=== PATIENT | female | born 1950 | race Caucasian/White ===

== ENCOUNTER → 2017-02-10 | Day surgery (SDC) | payer MEDICARE ==
[~2017-02-10] VITALS: Ht 160 cm; Wt 57.3 kg
[~2017-02-10] MED LIST: ACETAMINOPHEN 1000 MG/100 ML VIAL IV ONE; ALEN1TAB48 PO; ALPR.25 PO; AMPICILLIN-SULBACTAM INJ 3 GM VIAL ONE; AMPICILLIN/SULBAC 3 GM/NS 100 ML IV PRN; ASPI81TA5 PO; BACT800T5 PO; BENA25TA6 PO; CALC1TAB16 PO; CHLORHEXIDINE GLUCONATE 2 % 1 PACK (2 CLOTHS) TOPICAL PRN; CLOB0.0510 TOPICAL; ESTR42.5V VAGINAL; FAMOTIDINE 20 MG/2 ML VIAL ONE; GENT0.1O2 TOPICAL; GLUC500T4 PO; HYDROmorphone HCL PF 1 MG/ML VIAL ONE; INSULIN HUMAN REGULAR 1,000 UNITS/10 ML VIAL SQ PRN; KPHOS250 PO; LABETALOL HCL 100 MG/20 ML VIAL ONE; LACTATED RINGER'S 1000 ML INJ 1,000 ML IV ONE; LACTATED RINGER'S 1000 ML INJ 1,000 ML ONE; LACTATED RINGER'S 1000 ML IV PRN; LIDOCAINE 1%/EPINEPHrine 1:100,000 SOLN 30 ML VIAL ONE; METOPROLOL TARTRATE 25 MG TAB PO PRN; MORPHINE SULFATE 4 MG/ML INJ ONE; MYCO250C PO; NITR0.4S SL; OMEGCAP PO; OMEP20TA PO; ONDANSETRON HCL 4 MG/2 ML VIAL IV PUSH ONE; OXYMETAZOLINE HCL 0.05% 15 ML NASAL SPRAY ONE; PERC5TAB12 PO; POTA-243 PO; POVIDONE IODINE 5% (ANTISEPSIS KIT) 4 APPLICATIONS EACH NARE PRN; PRED5TAB PO; PROC10003 SQ; PROM25TA10 PO; PROM6.256 PO; PROMETHAZINE INJ 25 MG/ML VIAL ONE; PROPOFOL 200 MG/20 ML AMP IV ONE; RANI150T PO; SEVEL800 PO; SODIUM CHLORID 0.9% 500 ML IV PRN; SODIUM CHLORIDE 0.9% INJ 100 ML ONE; SOMA350T PO; TACR1 PO; ULOR40TA PO; VITA2000 PO; VITA400C70 PO; VITA500T83 PO; ZOFR4TAB3 SL; fentaNYL CITRATE 250 MCG/5 ML AMP ONE
[2017-02-10 08:47] VITALS: BP 127/78; PULSE 87; RESP 20; TEMP 97.7; O2SAT 96
[2017-02-10 11:02] VITALS: BP 149/68; PULSE 83; RESP 14; TEMP 98; O2SAT 99
--- NOTE | 2017-02-10 13:16 | MP ---
cc: ESTEBAN FOURNIER M.D. DATE OF SURGERY 02/10/[address] Esteban fournier PREOPERATIVE DIAGNOSIS 1. Nasal airway obstruction 2. Nasal septal deviation 3. Hypertrophy of inferior turbinates 4. Chronic pansinusitis POSTOPERATIVE DIAGNOSIS 1. Nasal airway obstruction 2. Nasal septal deviation 3. Hypertrophy of inferior turbinates 4. Chronic pansinusitis OPERATION PERFORMED 1. Open repair nasal septal fracture. 2. Bilateral submucosal resection of inferior turbinates 3. Bilateral endoscopic total ethmoidectomy. 4. Bilateral endoscopic maxillary antrostomy with removal of maxillary sinus tissue 5. Bilateral endoscopic exploration of frontal sinus duct with balloon sinus dilation. 6. Bilateral endoscopic sphenoidotomy with balloon sinus dilation. INDICATIONS Elisa Farley is a 66-year-old woman who has a history of renal transplant and is on chronic immune suppression. She has had difficulty with sinusitis for the last year which caused her to have a persistent cough due to posterior drainage. CT scan shows very marked bilateral deviation of the septum and involvement of all sinus cavities with obstruction and opacification. DESCRIPTION OF OPERATION The patient was taken to OR #2 and placed in the supine position. Following induction of general anesthesia and intubation, the nose was packed bilaterally with cotton pledgets saturated in 0.05% Oxymetazoline. The nasal septum and inferior turbinates were injected with a total of 8 mL of 1% Xylocaine with epinephrine 1:100,000. She was then prepped and draped for surgery. Packing was removed and a hemitransfixion incision was made in the left nasal vestibule and through this incision the septal mucosa was elevated bilaterally as far as the junction of the bony and cartilaginous septum. This exposed the quadrangular cartilage which was displaced from the midline all way to its anterior end into the left nasal vestibule. There was evidence of old cartilaginous trauma with numerous points and spurs in lines of angulation due to old fracture. A cumulative area of 2 x 2 cm was removed preserving 1.5 cm dorsal and caudal struts. The inferior most extent of the caudal strut was removed to allow it to return to the midline. The mucosa was then elevated from the bony septum and the maxillary crest and these were removed using Mamadou-Jimmy forceps and a 6-mm [place] chisel respectively. The incision was then closed with a running suture of 4-0 chromic and the mucosal layers of the septum were approximated to each other with a quilting stitch of 4-0 plain gut. The inferior turbinates were then fractured out medially and a stab incision was made along their inferior surfaces. Through these incisions, the submucosal soft tissue was reduced using a curette and preserving the conchal bone. The incision were then cauterized using suction Bovie at 45 andrea and the remnants of the inferior turbinates then we lateralized to the lateral nasal wall. The remainder the operation was completed using endoscopic visualization with a Storz 0 degrees fiberoptic scope. Additional injections of the lidocaine/epinephrine were made into the attachments of the middle turbinates as well as the uncinate processes and the ethmoid cells bilaterally. The left side was addressed first beginning with medialization of the middle turbinate and followed by sinusotomies punctured into the anterior and posterior ethmoid cells using a #10 suction and Blakesley forceps. The right side was then operated in the same fashion with medialization of the turbinate and sinusotomies created in the anterior and posterior ethmoid cells. The balloon dilation was attempted next starting at the left side. The guidewire was advanced up into the frontal sinus and the balloon advanced over the wire was inflated to a pressure of 12 atmospheres at the superior midpoint and inferior level of the junction with the anterior ethmoids. The duct was examined using a 70 degrees scope and found to be patent all the way into the frontal sinus. Fragments of bone and soft tissue were removed from the duct using upbiting Blakesley forceps. The same procedure was then completed on the right side with verification that the duct was patent all the way into the frontal sinus. Next, the maxillary ostium was opened on the left side using the balloon sinus technique. The cavity was irrigated of mucus and purulent material with 200 mL of saline. The ostium was then enlarged with Stammberger forceps and through cutting Blakesley forceps. The right maxillary was operated in the same fashion. This was also filled with mucopurulent material which was irrigated clear from the maxillary sinus. Lastly on each side, the sphenoid ostium was dilated using the balloon technique to a pressure of 12 atmospheres and verified patent with a 0 degrees scope. There was no sign of infection within the sphenoid sinus. All sinuses were then irrigated and suctioned. The nose was then packed with 5.5 cm rapid rhino packs inflated with 5 mL of air and the procedure was terminated. The patient was reversed from anesthesia and taken to recovery in good condition. No complications. Blood loss was 200 mL. MD ERNIE Toscano/JAVON /12:09 PM /1:09 PM
--- NOTE | 2017-02-10 18:05 | EKG ---
Date Performed: 02/10/2017 Time Performed: 08:44:54 PTAGE: 66 years EKG: Sinus rhythm LOW QRS VOLTAGE IN PRECORDIAL LEADS BORDERLINE ECG PREVIOUS TRACING : 12/15/2012 21.12 Compared to prior tracing no significant change DOCTOR: Connor Wisdom Interpretating Date/Time 02/10/2017 18:03:31
== END | disposition home or self-care (01) ==
LOC: PHSDC 06:29
PROVIDERS: ATTEND Otolaryngology
DX: J34.3 Hypertrophy of nasal turbinates (principal); J34.2 Deviated nasal septum; J32.4 Chronic pansinusitis; J34.89 Other specified disorders of nose and nasal sinuses; Z94.0 Kidney transplant status; Z01.810 Encounter for preprocedural cardiovascular examination
CPT/HCPCS: 00160; 21325; 30140; 31255; 31267; 31276; 31287; 93005; J0131; J0295; J1170; J2270; J2405; J2550; J3010; J7120

== ENCOUNTER 2018-08-01 12:46 | Inpatient (IN) ==
[2018-08-01] MEDS ORDERED: Acetaminophen 325 MG Tablet PO ONE (13:18)
[2018-08-01] MEDS ORDERED: Sod Chloride 0.9% Inj 1,000 ML IV.SIG SCH (13:30)
[2018-08-01] MEDS ORDERED: Sod Chloride 0.9% Inj 800 ML IV.SIG SCH (13:30)
--- NOTE | 2018-08-01 13:34 | ED ---
HPI General Chief Complaint: Fever Stated Complaint: Fever Complaint Time Seen by Provider: 08/01/18 13:16 Source: patient and family Limitations: no limitations History of Present Illness HPI Narrative: Patient is a 68-year-old female, past medical history significant for renal transplant 2 years ago, on immunosuppressive's, who presents with complaint of urinary urgency and frequency for the last 1-2 days with nausea, vomiting that began today with fevers. She did not take anything to help the fever other than a Soma. She has had a cough but does not believe it has been productive. She denies flank pain or pain over the transplant site. She does not know why she went into renal failure other than she had problems with proteinuria. Her transplant was done by the [facility]. He is followed by Dr. Mary, gas fitter apprentice with [facility], despite the fact that he is retired for her renal care. MD complaint: Reports fever and weakness Onset (ago): day(s) Temperature Source: oral Associated symptoms: Reports chills, cough, nausea and vomiting Relieving factors: nothing Exacerbating factors: nothing Treatments prior to arrival fever: Reports none Related Data Allergies Allergy/AdvReac Type Severity Reaction Status Date / Time allopurinol Allergy Severe RASH Unverified 03/10/17 15:52 lactose Allergy Severe COUGH, Unverified 03/10/17 15:52 CONGESTION, GAS Sulfa (Sulfonamide Allergy Intermediate Rash Unverified 03/10/17 15:52 Antibiotics) Review of Systems ROS: all other systems reviewed are negative [facility] Medical History Medical History Heart attack (Acute) Surgical History Surgical History H/O heart artery stent (Acute) Hx of cholecystectomy (Acute) Kidney transplant recipient (Chronic) Social History Social History Smoking Status: Never smoker How Often Do You Have a Drink Containing Alcohol: Monthly or less Recent Travel in [facility] within the Last 8 Weeks: No Exam Narrative Exam Narrative: GENERAL: Ill-appearing female, vomiting SKIN: Focused skin assessment warm/dry. No rashes. HEAD: Atraumatic. Normocephalic. EYES: Pupils equal and round. No scleral icterus. No injection or drainage. ENT: No nasal bleeding or discharge. Mucous membranes pink and dry. NECK: Trachea midline. No JVD. CARDIOVASCULAR: Regular rate and rhythm. No murmur appreciated. Intact and equal peripheral pulses. RESPIRATORY: No accessory muscle use. Clear to auscultation. Breath sounds equal bilaterally. GASTROINTESTINAL: Abdomen soft, non-tender, nondistended. Hepatic and splenic margins not palpable. No tenderness on palpation of the transplanted kidney MUSCULOSKELETAL: No obvious deformities. No clubbing. No cyanosis. No edema. NEUROLOGICAL: Awake and alert. No obvious cranial nerve deficits. Motor grossly within normal limits. Normal speech. PSYCHIATRIC: Appropriate mood and affect; insight and judgment normal. Course Initial Documented Vital Signs Temperature 100.4 F H 08/01/18 12:56 Pulse Rate 107 H 08/01/18 12:56 Respiratory Rate 20 08/01/18 12:56 Blood Pressure 130/71 08/01/18 12:56 Pulse Oximetry 96 08/01/18 12:56 Last Documented Vital Signs Temperature 100.4 F H 08/01/18 12:56 Pulse Rate 107 H 08/01/18 12:56 Respiratory Rate 20 08/01/18 12:56 Blood Pressure 130/71 08/01/18 12:56 Pulse Oximetry 96 08/01/18 12:56 Medical Decision Making MDM Narrative Medical decision making narrative: Patient is a 68-year-old female, past medical history significant for renal transplant approximately 2 years ago, who presents with complaint of urinary urgency and frequency with fever, nausea, vomiting. She is tachycardic and febrile, ill-appearing on arrival but has been hemodynamically stable. Sepsis protocol was initiated. She was given fluid boluses with cefepime. UA is consistent with infection. Blood work reveals a leukocytosis but a normal creatinine. She remains hemodynamically stable and thus has been admitted to the family medicine service under Dr. Crespo. Medical Screen Exam Complete: Yes Emergency Medical Condition: Yes Differential Diagnosis Differential Diagnosis: Differential diagnosis includes but is not limited to influenza, bacteremia, sepsis, pyelonephritis. Medical Records Medical records reviewed: Yes I reviewed the patient's medical records. Lab Data Lab results reviewed: Yes I reviewed the patient's lab results. Result diagrams: 08/01/18 13:15 08/01/18 13:15 Lab Results 08/01/18 08/01/18 08/01/18 Range/Units 13:10 13:15 13:15 WBC 14.0 H (4.0-11.0) th/mm3 RBC 4.57 (4.00-5.30) mil/mm3 Hgb 13.1 (11.6-15.3) gm/dL Hct 39.9 (35.0-46.0) % MCV 87.3 (80.0-100.0) fL MCH 28.7 (27.0-34.0) pg MCHC 32.9 (32.0-36.0) % RDW 14.1 (11.6-17.2) % Plt Count 171 (150-450) th/mm3 MPV 10.0 (7.0-11.0) fL Neut % (Auto) 82.7 H (16.0-70.0) % Lymph % (Auto) 11.6 (9.0-44.0) % Collin % (Auto) 5.1 (0.0-8.0) % Eos % (Auto) 0.0 (0.0-4.0) % Baso % (Auto) 0.6 (0.0-2.0) % Neut # (Auto) 11.5 H (1.8-7.7) th/mm3 Lymph # (Auto) 1.6 (1.0-4.8) th/mm3 Collin # (Auto) 0.7 (0.0-0.9) th/mm3 Eos # (Auto) 0.0 (0.0-0.4) th/mm3 Baso # (Auto) 0.1 (0.0-0.2) th/mm3 WBC Differential . Differential Comment Auto diff final Sodium 134 L (136-145) meq/L Potassium 4.2 (3.5-5.1) meq/L Chloride 101 (98-107) meq/L Carbon Dioxide 25.3 (21.0-32.0) meq/L Anion Gap 8 (5-15) meq/L BUN 15 (7-18) mg/dL Creatinine 1.03 H (0.50-1.00) mg/dL Estimated GFR 53 L (>89) mL/min Random Glucose 212 H (74-106) mg/dL Lactic Acid 1.5 (0.4-2.0) mmol/L Calcium 8.8 (8.5-10.1) mg/dL Total Bilirubin 1.6 H (0.2-1.0) mg/dL AST 36 (15-37) U/L ALT 25 (10-53) U/L Alkaline Phosphatase 73 (45-117) U/L Total Protein 7.1 (6.4-8.2) g/dL Albumin 3.6 (3.4-5.0) g/dL Urine Color (Yellw/Straw) Urine Clarity (Clear) Urine pH (5.0-8.5) Ur Specific Glen (1.002-1.035) Urine Protein (Neg-Trace) mg/dL Urine Glucose (UA) (Negative) mg/dL Urine Ketones (Negative) mg/dL Urine Occult Blood (Negative) Urine Nitrate (Negative) Urine Bilirubin (Negative) Urine Urobilinogen (Less than 2) mg/dL Ur Leukocyte Esterase (Negative) Urine RBC (0-3) /hpf Urine WBC (0-5) /hpf Urine WBC Clumps (None) Ur Squamous Epith Cells (0-5) /hpf Urine Bacteria (None) /hpf Micro UA Comment Ur Microscopic Review Urine Culture Comments 08/01/18 Range/Units 13:50 WBC (4.0-11.0) th/mm3 RBC (4.00-5.30) mil/mm3 Hgb (11.6-15.3) gm/dL Hct (35.0-46.0) % MCV (80.0-100.0) fL MCH (27.0-34.0) pg MCHC (32.0-36.0) % RDW (11.6-17.2) % Plt Count (150-450) th/mm3 MPV (7.0-11.0) fL Neut % (Auto) (16.0-70.0) % Lymph % (Auto) (9.0-44.0) % Collin % (Auto) (0.0-8.0) % Eos % (Auto) (0.0-4.0) % Baso % (Auto) (0.0-2.0) % Neut # (Auto) (1.8-7.7) th/mm3 Lymph # (Auto) (1.0-4.8) th/mm3 Collin # (Auto) (0.0-0.9) th/mm3 Eos # (Auto) (0.0-0.4) th/mm3 Baso # (Auto) (0.0-0.2) th/mm3 WBC Differential Differential Comment Sodium (136-145) meq/L Potassium (3.5-5.1) meq/L Chloride (98-107) meq/L Carbon Dioxide (21.0-32.0) meq/L Anion Gap (5-15) meq/L BUN (7-18) mg/dL Creatinine (0.50-1.00) mg/dL Estimated GFR (>89) mL/min Random Glucose (74-106) mg/dL Lactic Acid (0.4-2.0) mmol/L Calcium (8.5-10.1) mg/dL Total Bilirubin (0.2-1.0) mg/dL AST (15-37) U/L ALT (10-53) U/L Alkaline Phosphatase (45-117) U/L Total Protein (6.4-8.2) g/dL Albumin (3.4-5.0) g/dL Urine Color Yellow (Yellw/Straw) Urine Clarity Hazy H (Clear) Urine pH 6.0 (5.0-8.5) Ur Specific Glen 1.010 (1.002-1.035) Urine Protein 30 H (Neg-Trace) mg/dL Urine Glucose (UA) 50 (Negative) mg/dL Urine Ketones Negative (Negative) mg/dL Urine Occult Blood Small H (Negative) Urine Nitrate Positive H (Negative) Urine Bilirubin Negative (Negative) Urine Urobilinogen Less than 2 (Less than 2) mg/dL Ur Leukocyte Esterase Large H (Negative) Urine RBC 3 (0-3) /hpf Urine WBC (0-5) /hpf Urine WBC Clumps Many H (None) Ur Squamous Epith Cells <1 (0-5) /hpf Urine Bacteria Moderate H (None) /hpf Micro UA Comment Culture indicated Ur Microscopic Review Not Reportable Urine Culture Comments Culture indicated Imaging Data Radiologist's impression: Chest X-Ray 08/01/18 13:19 CONCLUSION: No acute cardiopulmonary disease. ECG Data EKG Prior to Arrival: No Attestation: I personally reviewed and interpreted this ECG as follows: (Sinus rhythm at a rate of [address] or T wave changes.) Discharge Plan Discharge Disposition Patient Disposition: ED Admit(ED Internal Use Only) Discharge Condition Condition: Stable Discharge Order Discharge Orders: ED Use Only Admit Order (Routine); Ordered 01/06/19 Ordered By: Yahaira Whittaker Discharge Details Diagnosis: Sepsis, Acute pyelonephritis, Renal transplant recipient Physicians Team ED Provider: Yahaira Whittaker Primary Care Provider: Oscar Luis ED Status: Pending Admission
[2018-08-01 13:40] LABS: Baso # (Auto) 0.1 th/mm3 (0.0-0.2); Baso % (Auto) 0.6 % (0.0-2.0); Hematocrit 39.9 % (35.0-46.0); Hemoglobin 13.1 gm/dL (11.6-15.3); Lymph # (Auto) 1.6 th/mm3 (1.0-4.8); Lymph % (Auto) 11.6 % (9.0-44.0); Mean Corpuscular HGB Conc 32.9 % (32.0-36.0); Mean Corpuscular Hemoglobin 28.7 pg (27.0-34.0); Mean Corpuscular Volume 87.3 fL (80.0-100.0); Mono # (Auto) 0.7 th/mm3 (0.0-0.9); Mono % (Auto) 5.1 % (0.0-8.0); Neut # (Auto) 11.5 th/mm3 (1.8-7.7); Neut % (Auto) 82.7 % (16.0-70.0); Platelet Count 171 th/mm3 (150-450); Red Blood Count 4.57 mil/mm3 (4.00-5.30); Red Cell Distribution Width 14.1 % (11.6-17.2)
--- NOTE | 2018-08-01 13:42 | XR ---
EXAM DATE: 08/01/2018 1:32 PM EST AGE/SEX: 68 years / Female INDICATIONS: Fever. CLINICAL DATA: This is the patient's initial encounter. Patient reports that signs and symptoms have been present for 2 days and indicates a pain score of 0/10. MEDICAL/SURGICAL HISTORY: None. Cholecystectomy. COMPARISON: [facility], XR CHEST PA AND LAT, 11/25/2016. . FINDINGS: The lungs are clear without infiltrate, nodule, or mass. There is no appreciable pleural effusion for technique. Heart and mediastinum are unremarkable. CONCLUSION: No acute cardiopulmonary disease. Electronically signed by: Angela Acosta MD Board Certified Radiologist 08/01/2018 1:40 PM EST
[2018-08-01 13:54] LABS: Alanine Aminotransferase 25 U/L (10-53); Albumin 3.6 g/dL (3.4-5.0); Anion Gap 8 meq/L (5-15); Aspartate Aminotransferase 36 U/L (15-37); Blood Urea Nitrogen 15 mg/dL (7-18); Calcium 8.8 mg/dL (8.5-10.1); Carbon Dioxide 25.3 meq/L (21.0-32.0); Chloride 101 meq/L (98-107); Glomerular Filtration Rate 53 mL/min (>89); Glucose,Random 212 mg/dL (74-106); Potassium 4.2 meq/L (3.5-5.1); Sodium 134 meq/L (136-145)
[2018-08-01 13:55] LABS: Alkaline Phosphatase 73 U/L (45-117); Total Protein 7.1 g/dL (6.4-8.2)
[2018-08-01 14:14] LABS: Bacteria,Urine Moderate /hpf; Bilirubin,Urine Negative (Negative); Color,Urine Yellow (Yellw/Straw); Glucose,Urine (UA) 50 mg/dL (Negative); Leukocyte Esterase,Urine Large (Negative); Nitrite,Urine Positive (Negative); Squamous Epithelial Cell,Urine <1 /hpf (0-5)
[2018-08-01 14:17] LABS: Clarity,Urine Hazy (Clear)
--- NOTE | 2018-08-01 15:29 | P.HPFP ---
History of Present Illness Primary Care Physician: Oscar Luis MD <Polo Crespo 08/01/18 19:55> Oscar Luis MD <Rey AlbertoMiracle E 08/01/18 15:28> History of Present Illness: Ms Aleksander Reeves is a 68yof presenting with urinary frequency and incontinence, starting yesterday. Denies any hematuria, dysuria. 102 fever this morning. No history of any urinary tract infections. Nausea and vomiting today. Lightheadedness this morning. Cough but believes that this was more like gagging with her vomiting. Denies any flank pain. patient was on amoxicillin 2 months ago for a dental treatment. PMH: S/p renal transplant, followed by Dr. Mary nephrology Meds: Prednisone Tacrolimus Procrit Tradgenta Ranitidine Fosomax Aspirin 81mg Vitamin D Clobetasol Carisprodol Promethazine Xanax 0.25mg Sx: renal transplant [address] [facility] Cardiac stent 2001 Cholecystectomy R ovary removed Hand sx Social EtOH- socially Tobacco- never smoker Recreational Drugs- none <Reytan DominguezMiracle E 08/01/18 17:56> - Diagnosis (1) Sepsis (2) Acute pyelonephritis (3) Renal transplant recipient <Polo Crespo 08/01/18 19:55> (1) Sepsis (2) Acute pyelonephritis (3) Renal transplant recipient <Reytan DominguezMiracle E 08/01/18 17:45> Inpatient Certification: I certify that the inpatient services were ordered in accordance with Medicare regulations governing the order. This includes certification that hospital inpatient services are reasonable and necessary and in the case of services not specified as inpatient-only under 42 CFR 419.22(n), that they are appropriately provided as inpatient services in accordance to with the 2-midnight benchmark under 43 CFR 412.3(e) <Polo Crespo 08/01/18 19:55> I certify that the inpatient services were ordered in accordance with Medicare regulations governing the order. This includes certification that hospital inpatient services are reasonable and necessary and in the case of services not specified as inpatient-only under 42 CFR 419.22(n), that they are appropriately provided as inpatient services in accordance to with the 2-midnight benchmark under 43 CFR 412.3(e) <Miracle Holt 08/01/18 15:28> Review of Systems Constitutional: Reports fever(s), Denies lack of energy, Denies weakness < Miracle Holt 08/01/18 17:56> Eyes: Denies blurry vision <Miracle Holt 08/01/18 17:56> Cardiovascular: Denies chest pain, Denies fainting, Denies leg swelling, Denies lightheadedness <Miracle Holt 08/01/18 17:56> Respiratory: Denies cough, Denies shortness of breath <Miracle Holt 01/12 17:56> Gastrointestinal: Denies abdominal pain, Denies change in bowel habits, Denies constipation <Miracle Holt 08/01/18 17:56> Genitourinary: Reports urinary incontinence, Reports urinary urgency, Denies blood in urine, Denies painful urination <Miracle Holt 08/01/18 17:56> [facility] - History History Provided By: Patient <Miracle Holt 08/01/18 15:28> - Medical History Medical History: Medical History (Last Updated 08/01/18 @ 13:59 by Brian Florence, RN) Heart attack <KalenPolo ann Angela Piña 08/01/18 19:45> Medical History (Last Updated 08/01/18 @ 13:59 by Brian Florence RN) Heart attack <Miracle Holt 08/01/18 15:28> - Surgical History Surgical History: Surgical History (Last Updated 08/01/18 @ 14:00 by Brian Florence, RN) H/O heart artery stent Hx of cholecystectomy Kidney transplant recipient <KalenPolo ann Angela Piña 08/01/18 19:45> Surgical History (Last Updated 08/01/18 @ 14:00 by Brian Florence, RN) H/O heart artery stent Hx of cholecystectomy Kidney transplant recipient <Miracle Holt 08/01/18 15:28> - Tobacco History Smoking Status: Never smoker <Miracle Holt 08/01/18 15:28> - Alcohol History How Often Do You Have a Drink Containing Alcohol: Monthly or less <Miracle Holt 08/01/18 15:28> - Travel History Recent Travel in the [place] Within the Last 8 Weeks: No <Miracle Holt - 08/01 15:28> - Immunization History Tetanus Immunization: Unsure <Miracle Holt - 08/01/18 15:28> Medications and Allergies Allergies Allergy/AdvReac Type Severity Reaction Status Date / Time allopurinol Allergy Severe RASH Unverified 03/10/17 15:52 lactose Allergy Severe COUGH, Unverified 03/10/17 15:52 CONGESTION, GAS Sulfa (Sulfonamide Allergy Intermediate Rash Unverified 03/10/17 15:52 Antibiotics) <Polo Crespo - 08/01/18 19:55> Home Medications Medication Instructions Recorded Confirmed Type alendronate [Fosamax] 70 mg PO QWEEK 08/01/18 08/01/18 History alprazolam [Xanax] 0.25 mg PO TID PRN 08/01/18 08/01/18 History aspirin 81 mg PO DAILY 08/01/18 08/01/18 History carisoprodol [Soma] 350 mg PO TID PRN 08/01/18 08/01/18 History cholecalciferol (vitamin D3) 2,000 unit PO EVERY OTHER DAY 08/01/18 08/01/18 History [Vitamin D3] cinnamon bark [Cinnamon] 500 mg PO DAILY 08/01/18 08/01/18 History clobetasol 1 applic TOPICAL DAILY PRN 08/01/18 08/01/18 History linagliptin [Tradjenta] 5 mg PO QAM 08/01/18 08/01/18 History mycophenolate mofetil 500 mg PO BID 08/01/18 08/01/18 History prednisone 5 mg PO DAILY 08/01/18 08/01/18 History promethazine 12.5 mg PO Q6H PRN 08/01/18 08/01/18 History ranitidine HCl [Zantac] 150 mg PO DAILY 08/01/18 08/01/18 History tacrolimus 1 mg PO QAM 08/01/18 08/01/18 History tacrolimus 2.5 mg PO QPM 08/01/18 08/01/18 History tacrolimus 2.5 mg PO QPM 08/01/18 08/01/18 History turmeric root extract 500 mg PO DAILY 08/01/18 08/01/18 History <Polo Crespo K - 08/01/18 19:55> Active Medications: Active Medications Acetaminophen (Tylenol) 650 mg PO Q4H PRN PRN Reason: FEVER > 100.4 F Alprazolam (Xanax) 0.25 mg PO TID PRN PRN Reason: Anxiety Aspirin (Ecotrin) 81 mg PO DAILY [facility] Carisoprodol (Soma) 350 mg PO TID PRN PRN Reason: MUSCLE SPASMS Enoxaparin Sodium (Lovenox Inj) 40 mg SQ DAILY [facility] Last Admin: 08/01/18 16:43 Dose: 40 mg Sodium Chloride (Ns Inj) 800 mls @ 0 mls/hr IV.SIG .Q0M [facility] Last Infusion: 08/01/18 15:56 Dose: Infused Sodium Chloride (Ns Inj) 1,000 mls @ 95 mls/hr IV.CONT .[id number] [facility] Last Admin: 08/01/18 16:43 Dose: 95 mls/hr Cefepime HCl 2,000 mg/ Sodium (Chloride) 100 mls @ 200 mls/hr IV.SIG Q12H [facility] Mycophenolate Mofetil (Cellcept) 500 mg PO BID [facility] Pt Own Med: (Linagliptin 5mg) 0 each PO DAILY [facility] Prednisone (Deltasone) 5 mg PO DAILY [facility] Ranitidine HCl (Zantac) 150 mg PO DAILY [facility] Sodium Chloride (Ns Flush) 2 ml IV.FLUSH BID [facility] Sodium Chloride (Ns Flush) 2 ml IV.FLUSH PRN PRN PRN Reason: FLUSH AFTER USING IV ACCESS Tacrolimus (Prograf) 2 mg PO DAILY@1900 [facility] Tacrolimus (Prograf) 0.5 mg PO DAILY@1900 [facility] <Polo Crespo K - 08/01/18 19:55> Active Medications Sodium Chloride (Ns Inj) 800 mls @ 0 mls/hr IV.SIG .Q0M [facility] Sodium Chloride (Ns Inj) 1,000 mls @ 95 mls/hr IV.CONT .[id number] [facility] Sodium Chloride (Ns Flush) 2 ml IV.FLUSH BID [facility] Sodium Chloride (Ns Flush) 2 ml IV.FLUSH PRN PRN PRN Reason: FLUSH AFTER USING IV ACCESS <Miracle Holt E - 08/01/18 15:28> Exam Vital signs: Vital Signs 08/01/18 12:56 08/01/18 13:19 08/01/18 14:31 Temperature 100.4 F H Pulse Rate 107 H 90 90 Respiratory Rate 20 17 16 Blood Pressure 130/71 155/72 H 128/57 L Pulse Oximetry 96 100 93 L 08/01/18 15:55 08/01/18 18:00 Temperature 100.5 F H 98.2 F Pulse Rate 88 89 Respiratory Rate 18 Blood Pressure 121/57 L 117/51 L Pulse Oximetry 95 97 Intake & Output 08/01/18 08/01/18 08/02/18 06:59 18:59 06:59 Intake Total 1900 / 1900 Balance 1900 / 1900 Weight 58.9 kg Intake: IV 1900 / 1900 Maxipime Inj 2,000 MG In NS Inj 100 / 100 100 ML @ 200 mls/hr IV.SIG STAT STA Rx#:[id number] NS Inj 800 ML @ Wide Open IV. 1800 / 1800 SIG .Q0M [facility] Rx#:[id number] Other: Weight On Admission 58.9 kg <Polo Crespo K - 08/01/18 19:55> Vital Signs 08/01/18 12:56 08/01/18 13:19 08/01/18 14:31 Temperature 100.4 F H Pulse Rate 107 H 90 90 Respiratory Rate 20 17 16 Blood Pressure 130/71 155/72 H 128/57 L Pulse Oximetry 96 100 93 L Intake & Output 07/31/18 08/01/18 08/01/18 18:59 06:59 18:59 Intake Total 1100 / 1100 Balance 1100 / 1100 Weight 55.338 kg Intake: IV 1100 / 1100 Maxipime Inj 2,000 MG In NS Inj 100 / 100 100 ML @ 200 mls/hr IV.SIG STAT STA Rx#:[id number] NS Inj 1,000 ML @ Wide Open IV. 1000 / 1000 SIG .Q0M FANNY Rx#:[id number] <Miracle Holt E - 08/01/18 15:28> Narrative: GENERAL: Well-appearing female, no acute distress resting in bed SKIN: Warm and dry. HEAD: Normocephalic. EYES: No scleral icterus. No injection or drainage. CARDIOVASCULAR: Regular rate and rhythm without murmurs, gallops, or rubs. RESPIRATORY: Breath sounds equal bilaterally. No accessory muscle use. GASTROINTESTINAL: Abdomen soft, non-tender, nondistended. Scars noted from previous surgeries MUSCULOSKELETAL: No cyanosis, or edema. BACK: Nontender without obvious deformity. No CVA tenderness. <Rey Miracle Dominguez E - 08/01/18 17:56> Results - Labs Result diagrams: 08/01/18 13:15 08/01/18 13:15 <Polo Crespo - 08/01/18 19:55> Abnormal lab results 08/01/18 08/01/18 08/01/18 Range/Units 13:15 13:15 13:50 WBC 14.0 H (4.0-11.0) th/mm3 Neut % (Auto) 82.7 H (16.0-70.0) % Neut # (Auto) 11.5 H (1.8-7.7) th/mm3 Sodium 134 L (136-145) meq/L Creatinine 1.03 H (0.50-1.00) mg/dL Estimated GFR 53 L (>89) mL/min Random Glucose 212 H (74-106) mg/dL Total Bilirubin 1.6 H (0.2-1.0) mg/dL Urine Clarity Hazy H (Clear) Urine Protein 30 H (Neg-Trace) mg/dL Urine Occult Blood Small H (Negative) Urine Nitrate Positive H (Negative) Ur Leukocyte Esterase Large H (Negative) Urine WBC Clumps Many H (None) Urine Bacteria Moderate H (None) /hpf Short CBC 08/01/18 Range/Units 13:15 WBC 14.0 H (4.0-11.0) th/mm3 Hgb 13.1 (11.6-15.3) gm/dL Hct 39.9 (35.0-46.0) % Plt Count 171 (150-450) th/mm3 BMP 08/01/18 13:15 Sodium 134 L Potassium 4.2 Chloride 101 Carbon Dioxide 25.3 BUN 15 Creatinine 1.03 H Calcium 8.8 Liver Function 08/01/18 Range/Units 13:15 Total Bilirubin 1.6 H (0.2-1.0) mg/dL AST 36 (15-37) U/L ALT 25 (10-53) U/L Alkaline Phosphatase 73 (45-117) U/L Albumin 3.6 (3.4-5.0) g/dL Urine 08/01/18 Range/Units 13:50 Urine Color Yellow (Yellw/Straw) Urine Clarity Hazy H (Clear) Urine pH 6.0 (5.0-8.5) Ur Specific [place] 1.010 (1.002-1.035) Urine Protein 30 H (Neg-Trace) mg/dL Urine Glucose (UA) 50 (Negative) mg/dL <Polo Crespo - 08/01/18 19:55> Abnormal lab results 08/01/18 08/01/18 08/01/18 Range/Units 13:15 13:15 13:50 WBC 14.0 H (4.0-11.0) th/mm3 Neut % (Auto) 82.7 H (16.0-70.0) % Neut # (Auto) 11.5 H (1.8-7.7) th/mm3 Sodium 134 L (136-145) meq/L Creatinine 1.03 H (0.50-1.00) mg/dL Estimated GFR 53 L (>89) mL/min Random Glucose 212 H (74-106) mg/dL Total Bilirubin 1.6 H (0.2-1.0) mg/dL Urine Clarity Hazy H (Clear) Urine Protein 30 H (Neg-Trace) mg/dL Urine Occult Blood Small H (Negative) Urine Nitrate Positive H (Negative) Ur Leukocyte Esterase Large H (Negative) Urine WBC Clumps Many H (None) Urine Bacteria Moderate H (None) /hpf Short CBC 08/01/18 Range/Units 13:15 WBC 14.0 H (4.0-11.0) th/mm3 Hgb 13.1 (11.6-15.3) gm/dL Hct 39.9 (35.0-46.0) % Plt Count 171 (150-450) th/mm3 BMP 08/01/18 13:15 Sodium 134 L Potassium 4.2 Chloride 101 Carbon Dioxide 25.3 BUN 15 Creatinine 1.03 H Calcium 8.8 Liver Function 08/01/18 Range/Units 13:15 Total Bilirubin 1.6 H (0.2-1.0) mg/dL AST 36 (15-37) U/L ALT 25 (10-53) U/L Alkaline Phosphatase 73 (45-117) U/L Albumin 3.6 (3.4-5.0) g/dL Urine 08/01/18 Range/Units 13:50 Urine Color Yellow (Yellw/Straw) Urine Clarity Hazy H (Clear) Urine pH 6.0 (5.0-8.5) Ur Specific [place] 1.010 (1.002-1.035) Urine Protein 30 H (Neg-Trace) mg/dL Urine Glucose (UA) 50 (Negative) mg/dL <Miracle Holt 08/01/18 15:28> - Imaging Impressions Chest X-Ray 08/01/18 13:19 CONCLUSION: No acute cardiopulmonary disease. Renal Ultrasound 08/01/18 14:42 CONCLUSION: Renal transplant ultrasound within normal limits. <Polo Crespo 08/01/18 19:55> Impressions Chest X-Ray 08/01/18 13:19 CONCLUSION: No acute cardiopulmonary disease. <Miracle Holt 08/01/18 15:28> Caprini VTE Risk Assessment Caprini VTE Risk Assessment: No/Low Risk (score <= 1) <Miracle Holt 01/12 17:56> Caprini Risk Assessment Model: Point Value = 1 Point Value = 2 Point Value = 3 Point Value = 5 Age 41-60 Minor surgery BMI > 25 kg/m2 Swollen legs Varicose veins or History of unexplained or recurrent spontaneous Oral contraceptives or hormone replacement Sepsis (< 1 month) Serious lung disease, including pneumonia (< 1 month) Abnormal pulmonary function Acute myocardial infarction Congestive heart failure (< 1 month) History of inflammatory bowel disease Medical patient at bed rest Age 61-74 Arthroscopic surgery Major open surgery (> 45 min) Laparoscopic surgery (> 45 min) Malignancy Confined to bed (> 72 hours) Immobilizing plaster cast Central venous access Age >= 75 History of VTE Family history of VTE Factor V Leiden Prothrombin [id number] Lupus anticoagulant Anticardiolipin antibodies Elevated serum homocysteine Heparin-induced thrombocytopenia Other congenital or acquired thrombophilia Stroke (< 1 month) Elective arthroplasty Hip, pelvis, or leg fracture Acute spinal cord injury (< 1 month) <Polo Crespo 08/01/18 19:55> Point Value = 1 Point Value = 2 Point Value = 3 Point Value = 5 Age 41-60 Minor surgery BMI > 25 kg/m2 Swollen legs Varicose veins or History of unexplained or recurrent spontaneous Oral contraceptives or hormone replacement Sepsis (< 1 month) Serious lung disease, including pneumonia (< 1 month) Abnormal pulmonary function Acute myocardial infarction Congestive heart failure (< 1 month) History of inflammatory bowel disease Medical patient at bed rest Age 61-74 Arthroscopic surgery Major open surgery (> 45 min) Laparoscopic surgery (> 45 min) Malignancy Confined to bed (> 72 hours) Immobilizing plaster cast Central venous access Age >= 75 History of VTE Family history of VTE Factor V Leiden Prothrombin [id number] Lupus anticoagulant Anticardiolipin antibodies Elevated serum homocysteine Heparin-induced thrombocytopenia Other congenital or acquired thrombophilia Stroke (< 1 month) Elective arthroplasty Hip, pelvis, or leg fracture Acute spinal cord injury (< 1 month) <Miracle Holt - 08/01/18 15:28> Prophylaxis Regimen: Total Risk Factor Score Risk Level Prophylaxis Regimen 0-1 Low Early ambulation 2 Moderate Order ONE of the following: *Sequential Compression Device (SCD) *Heparin 5000 units SQ BID 3-4 Higher Order ONE of the following medications: *Heparin 5000 units SQ TID *Enoxaparin/Lovenox 40 mg SQ daily (WT < 150 kg, CrCl > 30 mL/min) *Enoxaparin/Lovenox 30 mg SQ daily (WT < 150 kg, CrCl > 10-29 mL/min) *Enoxaparin/Lovenox 30 mg SQ BID (WT < 150 kg, CrCl > 30 mL/min) AND/OR *Sequential Compression Device (SCD) 5 or more Highest Order ONE of the following medications: *Heparin 5000 units SQ TID (Preferred with Epidurals) *Enoxaparin/Lovenox 40 mg SQ daily (WT < 150 kg, CrCl > 30 mL/min) *Enoxaparin/Lovenox 30 mg SQ daily (WT < 150 kg, CrCl > 10-29 mL/min) *Enoxaparin/Lovenox 30 mg SQ BID (WT < 150 kg, CrCl > 30 mL/min) AND *Sequential Compression Device (SCD) <Polo Crespo - 08/01/18 19:55> Total Risk Factor Score Risk Level Prophylaxis Regimen 0-1 Low Early ambulation 2 Moderate Order ONE of the following: *Sequential Compression Device (SCD) *Heparin 5000 units SQ BID 3-4 Higher Order ONE of the following medications: *Heparin 5000 units SQ TID *Enoxaparin/Lovenox 40 mg SQ daily (WT < 150 kg, CrCl > 30 mL/min) *Enoxaparin/Lovenox 30 mg SQ daily (WT < 150 kg, CrCl > 10-29 mL/min) *Enoxaparin/Lovenox 30 mg SQ BID (WT < 150 kg, CrCl > 30 mL/min) AND/OR *Sequential Compression Device (SCD) 5 or more Highest Order ONE of the following medications: *Heparin 5000 units SQ TID (Preferred with Epidurals) *Enoxaparin/Lovenox 40 mg SQ daily (WT < 150 kg, CrCl > 30 mL/min) *Enoxaparin/Lovenox 30 mg SQ daily (WT < 150 kg, CrCl > 10-29 mL/min) *Enoxaparin/Lovenox 30 mg SQ BID (WT < 150 kg, CrCl > 30 mL/min) AND *Sequential Compression Device (SCD) <Miracle Holt E - 08/01/18 15:28> Assessment and Plan - Assessment (1) Sepsis Code(s): A41.9 - Sepsis, unspecified organism Status: Acute (2) Acute pyelonephritis Code(s): N10 - Acute pyelonephritis Status: Acute (3) Renal transplant recipient Code(s): Z94.0 - Kidney transplant status Status: Acute <ZakPolo Angela - 08/01/18 19:55> (1) Sepsis Code(s): A41.9 - Sepsis, unspecified organism Status: Acute Plan: -Patient met sepsis criteria on admission with pulse of 107, WBC 14 -UA positive for blood, nitrates, leukocyte esterase. We will send for culture and follow -Patient received 1.8 L normal saline fluid bolus -Blood cultures drawn, will follow -Acetaminophen as needed for fevers -Ibuprofen to be used judiciously for breakthrough fevers, will allow temp up to 101.5 while on acetaminophen -CBC daily in a.m. -See plan for pyelonephritis below (2) Acute pyelonephritis Code(s): N10 - Acute pyelonephritis Status: Acute Plan: -Status post renal transplant -Ultrasound kidneys and bladder -Normal saline at maintenance level of 95 mL's per hour -Cefepime 2 g every 12 hours (3) Renal transplant recipient Code(s): Z94.0 - Kidney transplant status Status: Acute Plan: -Patient followed by Dr. Mary nephrology. Apparently this physician has been retired but is still following the patient. We will give him a courtesy call in the a.m. and discuss with him whether he wants to evaluate patient or would like us to consult our in-house commercial counsel -Continue home immunosuppressants -Creatinine 1.03 at this time -BMPs daily -Avoid nephrotoxic agents as possible <Miracle Holt - 08/01/18 17:45> - Assessment and Plan Discussed Condition With: Evelina Crespo and Roma <Miracle Holt - 08/01/18 17:56> - Attending Attestation The exam, history, and the medical decision-making described in the above note were completed with the assistance of the resident physician. I reviewed and agree with the findings presented. I attest that I had a [id number] encounter with the patient on the same day, and personally performed and documented my assessment and findings in the medical record. Agree with resident histories as documented. I was present for interview and performed physical exam with Dr Le. I will add that she was a little flushed and erythematous. Sepsis 2/2 pyelonephritis in solitary transplanted kidney Empiric cefepime, follow cultures Monitor renal function closely continue home immunosuppresants for now Will consult nephrology DM monitor with SSI add tradjenta tomorrow if possible CAD cont home meds Anxiety cont home meds GERD cont home meds <Polo Crespo - 08/01/18 19:55>
[2018-08-01] MEDS ORDERED: Ibuprofen 400 MG Tablet PO ONE (15:58)
[2018-08-01] MEDS: Sod Chloride 0.9% Inj 1,000 ML IV.CONT SCH (16:43)
[2018-08-01] MEDS: Enoxaparin Inj 40 MG/0.4 ML Syringe SQ SCH (16:43)
--- NOTE | 2018-08-01 17:25 | US ---
EXAM DATE: 08/01/2018 5:21 PM EST AGE/SEX: 68 years / Female INDICATIONS: Hematuria. CLINICAL DATA: This is the patient's initial encounter. Patient reports that signs and symptoms have been present for 1 day and indicates a pain score of 1/10. MEDICAL/SURGICAL HISTORY: . Myocardial infarction. Coronary artery stent. Cholecystectomy. Ki dney transplant. COMPARISON: [facility] [place], CT ABDOMEN & PELVIS W/O CONTRAST, 12/28/2012. . MEASUREMENTS: Transplant Kidney:__10.8 x 5.6 x 5.8 cm Location:__Right lower quadrant Arcuate Arteries Resistive Index: Upper - 0.8 Mid - 0.7 Lower - 0.7 Main Renal Artery Velocity:__192 cm/sec Main Renal Vein:__Patent External Iliac Artery Velocity:__261.9 cm/sec External Iliac Vein:__Patent FINDINGS: Transplant Kidney: Normal echogenicity and cortical thickness. No mass or hydronephrosis. No peritra nsplant fluid. Urinary Bladder: Decompressed. Not well evaluated. Other: None. CONCLUSION: Renal transplant ultrasound within normal limits. Electronically signed by: Ziggy Salazar MD Board Certified Radiologist 08/01/2018 5:24 PM EST
[2018-08-01] MEDS ORDERED: Carisoprodol 350 MG Tablet PO PRN (17:54)
[2018-08-01] MEDS ORDERED: Tacrolimus 0.5 MG Capsule PO SCH (19:00)
[2018-08-01] MEDS ORDERED: Dextrose 50% in Water 50 ML Vial IV.PUSH PRN (19:50)
[2018-08-01] MEDS: Acetaminophen 325 MG Tablet PO PRN (20:25)
[2018-08-01] MEDS: Insulin NovoLOG Aspart Correctional Sugar Inj SQ SCH (20:35)
[2018-08-01] MEDS: Tacrolimus 0.5 MG Capsule PO SCH (20:36)
[2018-08-01] MEDS: Mycophenolate Mofetil 250 MG Capsule PO SCH (21:53)
[2018-08-02] MEDS: Sod Chloride 0.9% Inj 1,000 ML IV.CONT SCH ×2 (00:14→07:17)
[2018-08-02 08:46] LABS: Hematocrit 34.7 % (35.0-46.0); Hemoglobin 11.3 gm/dL (11.6-15.3); Mean Corpuscular HGB Conc 32.5 % (32.0-36.0); Mean Corpuscular Hemoglobin 28.5 pg (27.0-34.0); Mean Corpuscular Volume 87.5 fL (80.0-100.0); Mean Platelet Volume 10.2 fL (7.0-11.0); Platelet Count 132 th/mm3 (150-450); Red Blood Count 3.96 mil/mm3 (4.00-5.30); Red Cell Distribution Width 14.3 % (11.6-17.2); White Blood Count 13.3 th/mm3 (4.0-11.0)
[2018-08-02] MEDS: Enoxaparin Inj 40 MG/0.4 ML Syringe SQ SCH (08:48)
[2018-08-02] MEDS: Mycophenolate Mofetil 250 MG Capsule PO SCH ×2 (08:49→21:15)
[2018-08-02] MEDS: Insulin NovoLOG Aspart Correctional Sugar Inj SQ SCH ×4 (08:49→21:18)
[2018-08-02] MEDS: predniSONE 5 MG Tablet PO SCH (08:49)
[2018-08-02] MEDS ORDERED: LINAGLIPTIN 5 MG PO SCH (09:00)
[2018-08-02 09:38] LABS: Calcium 7.9 mg/dL (8.5-10.1); Carbon Dioxide 24.4 meq/L (21.0-32.0); Potassium 3.7 meq/L (3.5-5.1)
--- NOTE | 2018-08-02 10:12 | P.CONNP ---
History of Present Illness Service: Nephrology Reason for Consult: s/p renal transplant Primary Care Provider: Oscar Luis MD History of Present Illness: This is a 68 year old lady s/p renal transplant about 2 years ago in [facility]. She has well preserved renal function. She is on Tacrolimus, Prednisone and CellCept. Admitted with UTI with sepsis. Possible pyelonephritis. On Cefepime. Review of Systems Constitutional: Reports anorexia, Reports body ache(s), Reports chills, Reports fatigue, Reports lack of energy, Reports weakness Cardiovascular: Denies chest pain, Denies rapid, pounding, or irregular heartbeat Respiratory: Denies change in phlegm color Allergic/Immunologic: Denies GI upset with certain foods PMFSH - History History Provided By: Patient, Family Member - Medical History Medical History: Medical History (Last Updated 08/01/18 @ 13:59 by Brian Florence RN) Heart attack - Surgical History Surgical History: Surgical History (Last Updated 08/01/18 @ 14:00 by Brian Florence RN) H/O heart artery stent Hx of cholecystectomy Kidney transplant recipient - Tobacco History Second Hand Smoke Exposure: No Smoking Status: Never smoker - Alcohol History How Often Do You Have a Drink Containing Alcohol: Monthly or less - Substance Use History Substance History: No History of Abuse - Travel History Recent Travel in the [facility] Within the Last 8 Weeks: No - Immunization History Tetanus Immunization: >5 Years Hx Influenza Vaccine This Season: No Medications and Allergies Active Medications: Active Medications Acetaminophen (Tylenol) 650 mg PO Q4H PRN PRN Reason: FEVER > 100.4 F Last Admin: 08/01/18 20:25 Dose: 650 mg Alprazolam (Xanax) 0.25 mg PO TID PRN PRN Reason: Anxiety Aspirin (Ecotrin) 81 mg PO DAILY [facility] Last Admin: 08/02/18 08:49 Dose: 81 mg Carisoprodol (Soma) 350 mg PO TID PRN PRN Reason: MUSCLE SPASMS Dextrose (D50w Vial) 50 ml IV.PUSH UNSCH PRN PRN Reason: PER HYPOGLYCEMIA PROTOCOL Enoxaparin Sodium (Lovenox Inj) 40 mg SQ DAILY [facility] Last Admin: 08/02/18 08:48 Dose: 40 mg Glucagon (Glucagon Inj) 1 mg OTHER PRN PRN PRN Reason: for Hypoglycemia Protocol Sodium Chloride (Ns Inj) 800 mls @ 0 mls/hr IV.SIG .Q0M [facility] Last Infusion: 08/01/18 15:56 Dose: Infused Cefepime HCl 2,000 mg/ Sodium (Chloride) 100 mls @ 200 mls/hr IV.SIG Q12H [facility] Last Admin: 08/02/18 08:49 Dose: 200 mls/hr Sodium Chloride (1/2 Normal Saline Inj) 1,000 mls @ 75 mls/hr IV.CONT .[id number] [facility] Insulin Aspart (Novolog Insulin Correctional Sugar Inj) 0 unit SQ ACHS [facility]; Protocol Last Admin: 08/02/18 08:49 Dose: 1 unit Mycophenolate Mofetil (Cellcept) 500 mg PO BID [facility] Last Admin: 08/02/18 08:49 Dose: 500 mg Ondansetron HCl (Zofran Inj) 4 mg IV.PUSH Q6H PRN PRN Reason: NAUSEA OR VOMITING Last Admin: 08/02/18 08:48 Dose: 4 mg Pt Own Med: (Linagliptin 5mg) 0 each PO DAILY [facility] Prednisone (Deltasone) 5 mg PO DAILY [facility] Last Admin: 08/02/18 08:49 Dose: 5 mg Ranitidine HCl (Zantac) 150 mg PO DAILY [facility] Last Admin: 08/02/18 08:49 Dose: 150 mg Sodium Chloride (Ns Flush) 2 ml IV.FLUSH BID [facility] Last Admin: 08/02/18 08:50 Dose: Not Given Sodium Chloride (Ns Flush) 2 ml IV.FLUSH PRN PRN PRN Reason: FLUSH AFTER USING IV ACCESS Tacrolimus (Prograf) 2 mg PO DAILY@0900 [facility] Last Admin: 08/02/18 09:08 Dose: 2 mg Tacrolimus (Prograf) 1.5 mg PO DAILY@1800 [facility] Last Admin: 08/01/18 20:36 Dose: 1.5 mg Allergies Allergy/AdvReac Type Severity Reaction Status Date / Time allopurinol Allergy Severe RASH Unverified 03/10/17 15:52 lactose Allergy Severe COUGH, Unverified 03/10/17 15:52 CONGESTION, GAS Sulfa (Sulfonamide Allergy Intermediate Rash Unverified 03/10/17 15:52 Antibiotics) Home Medications Medication Instructions Recorded Confirmed Type alendronate [Fosamax] 70 mg PO QWEEK 08/01/18 08/01/18 History alprazolam [Xanax] 0.25 mg PO TID PRN 08/01/18 08/01/18 History aspirin 81 mg PO DAILY 08/01/18 08/01/18 History carisoprodol [Soma] 350 mg PO TID PRN 08/01/18 08/01/18 History cholecalciferol (vitamin D3) 2,000 unit PO EVERY OTHER DAY 08/01/18 08/01/18 History [Vitamin D3] cinnamon bark [Cinnamon] 500 mg PO DAILY 08/01/18 08/01/18 History clobetasol 1 applic TOPICAL DAILY PRN 08/01/18 08/01/18 History linagliptin [Tradjenta] 5 mg PO QAM 08/01/18 08/01/18 History mycophenolate mofetil 500 mg PO BID 08/01/18 08/01/18 History prednisone 5 mg PO DAILY 08/01/18 08/01/18 History promethazine 12.5 mg PO Q6H PRN 08/01/18 08/01/18 History ranitidine HCl [Zantac] 150 mg PO DAILY 08/01/18 08/01/18 History tacrolimus 1 mg PO QAM 08/01/18 08/01/18 History tacrolimus 2.5 mg PO QPM 08/01/18 08/01/18 History tacrolimus 2.5 mg PO QPM 08/01/18 08/01/18 History turmeric root extract 500 mg PO DAILY 08/01/18 08/01/18 History Exam Vital signs: Vital Signs 08/01/18 12:56 08/01/18 13:19 08/01/18 14:31 Temperature 100.4 F H Pulse Rate 107 H 90 90 Respiratory Rate 20 17 16 Blood Pressure 130/71 155/72 H 128/57 L Pulse Oximetry 96 100 93 L 08/01/18 15:55 08/01/18 18:00 08/01/18 20:00 Temperature 100.5 F H 98.2 F 102.9 F H Pulse Rate 88 89 105 H Respiratory Rate 18 18 Blood Pressure 121/57 L 117/51 L 143/65 H Pulse Oximetry 95 97 93 L 08/02/18 00:00 08/02/18 04:00 08/02/18 08:00 Temperature 97.8 F 97.4 F L 97.8 F Pulse Rate 85 82 75 Respiratory Rate 15 15 18 Blood Pressure 99/53 L 128/61 102/56 L Pulse Oximetry 94 L 95 94 L 08/02/18 09:34 Temperature Pulse Rate Respiratory Rate Blood Pressure Pulse Oximetry 97 Intake & Output 08/01/18 08/02/18 08/02/18 18:59 06:59 18:59 Intake Total 1900 / 1900 1240 / 1240 Balance 1900 / 1900 1240 / 1240 Weight 58.9 kg 56 kg 60.3 kg Intake: IV 1900 / 1900 1000 / 1000 NS Inj 1,000 ML @ 95 mls/hr IV. 1000 / 1000 CONT .[id number] [facility] Rx#:[id number] Maxipime Inj 2,000 MG In NS Inj 100 / 100 100 ML @ 200 mls/hr IV.SIG STAT STA Rx#:[id number] NS Inj 800 ML @ Wide Open IV. 1800 / 1800 SIG .Q0M FANNY Rx#:[id number] Oral 240 / 240 Other: # Voids 5 # Incontinent Voids 2 Weight On Admission 58.9 kg - Constitutional no acute distress - Routine HEENT Exam Head: Present: normocephalic, atraumatic Eye: Present: EOMI, PERRL - Routine Neck Exam Present: supple. Absent: JVD, lymphadenopathy, thyromegaly - Routine Respiratory Exam Present: accessory muscle use - Routine Cardiovascular Exam Present: RRR, S1, S2 - Routine Abdominal Exam Present: soft, normoactive bowel sounds Comments: transplanted graft not tender - Routine Extremities Exam Present: full ROM. Absent: edema - Routine Skin Exam Present: intact Results - Lab Results 08/03/18 08:42 08/03/18 08:42 Most recent lab results Calcium 7.9 mg/dL (8.5-10.1) L D 08/02/18 07:06 Assessment and Plan - Assessment (1) Sepsis Code(s): A41.9 - Sepsis, unspecified organism Status: Acute Plan: UTI with sepsis. Blood culture grew Gram negative rods. On Cefepime. Await identification and sensitivities. Monitor urine output and renal function. Hydration. (2) Acute pyelonephritis Code(s): N10 - Acute pyelonephritis Status: Acute Plan: Renal transplant US unremarkable. Continue antibiotic. (3) Renal transplant recipient Code(s): Z94.0 - Kidney transplant status Status: Acute Plan: Continue immunosuppressives as ordered. Tacrolimus level is pending. (4) Type 2 diabetes mellitus Code(s): E11.9 - Type 2 diabetes mellitus without complications Status: Acute Plan: Patient was on Tradjenta at home. Insulin coverage to maintain blood glucose 140 of 180. - Attending Attestation Thanks for the consult.
[2018-08-02] MEDS: Sodium Chloride 0.45 % Inj 1,000 ML IV.CONT SCH (11:28)
[2018-08-02] MEDS: Benzocaine/Menthol 15 MG/3.6 MG SF Lozenge BUCCAL PRN ×2 (14:30→16:38)
--- NOTE | 2018-08-02 16:54 | P.PNFP ---
Subjective Interval history: feeling much better today. fevers improved. she is eating with good appetite. no concerns. Would like to see nephrology today, she is concerned about her good kidney. no nausea or vomiting or chills now. Results - Labs Result diagrams: 08/02/18 07:06 08/02/18 07:06 Abnormal lab results 08/01/18 08/01/18 08/01/18 Range/Units 13:15 13:50 20:34 WBC (4.0-11.0) th/mm3 RBC (4.00-5.30) mil/mm3 Hgb (11.6-15.3) gm/dL Hct (35.0-46.0) % Plt Count (150-450) th/mm3 Chloride (98-107) meq/L Estimated GFR (>89) mL/min POC Glucose 161 H (68-110) mg/dl Random Glucose (74-106) mg/dL Calcium (8.5-10.1) mg/dL Urine Clarity Hazy H (Clear) Urine Protein 30 H (Neg-Trace) mg/dL Urine Occult Blood Small H (Negative) Urine Nitrate Positive H (Negative) Ur Leukocyte Esterase Large H (Negative) Urine WBC Clumps Many H (None) Urine Bacteria Moderate H (None) /hpf Tacrolimus 2.6 L (5.0-20.0) ng/mL 08/02/18 08/02/18 08/02/18 Range/Units 07:06 07:06 07:55 WBC 13.3 H (4.0-11.0) th/mm3 RBC 3.96 L (4.00-5.30) mil/mm3 Hgb 11.3 L (11.6-15.3) gm/dL Hct 34.7 L (35.0-46.0) % Plt Count 132 L (150-450) th/mm3 Chloride 112 H D (98-107) meq/L Estimated GFR 67 L (>89) mL/min POC Glucose 155 H (68-110) mg/dl Random Glucose 125 H (74-106) mg/dL Calcium 7.9 L D (8.5-10.1) mg/dL Urine Clarity (Clear) Urine Protein (Neg-Trace) mg/dL Urine Occult Blood (Negative) Urine Nitrate (Negative) Ur Leukocyte Esterase (Negative) Urine WBC Clumps (None) Urine Bacteria (None) /hpf Tacrolimus (5.0-20.0) ng/mL 08/02/18 Range/Units 16:28 WBC (4.0-11.0) th/mm3 RBC (4.00-5.30) mil/mm3 Hgb (11.6-15.3) gm/dL Hct (35.0-46.0) % Plt Count (150-450) th/mm3 Chloride (98-107) meq/L Estimated GFR (>89) mL/min POC Glucose 181 H (68-110) mg/dl Random Glucose (74-106) mg/dL Calcium (8.5-10.1) mg/dL Urine Clarity (Clear) Urine Protein (Neg-Trace) mg/dL Urine Occult Blood (Negative) Urine Nitrate (Negative) Ur Leukocyte Esterase (Negative) Urine WBC Clumps (None) Urine Bacteria (None) /hpf Tacrolimus (5.0-20.0) ng/mL Short CBC 08/02/18 Range/Units 07:06 WBC 13.3 H (4.0-11.0) th/mm3 Hgb 11.3 L (11.6-15.3) gm/dL Hct 34.7 L (35.0-46.0) % Plt Count 132 L (150-450) th/mm3 BMP 08/02/18 07:06 Sodium 144 D Potassium 3.7 Chloride 112 H D Carbon Dioxide 24.4 BUN 13 Creatinine 0.84 Calcium 7.9 L D Urine 08/01/18 Range/Units 13:50 Urine Color Yellow (Yellw/Straw) Urine Clarity Hazy H (Clear) Urine pH 6.0 (5.0-8.5) Ur Specific [place] 1.010 (1.002-1.035) Urine Protein 30 H (Neg-Trace) mg/dL Urine Glucose (UA) 50 (Negative) mg/dL - Imaging Impressions Renal Ultrasound 08/01/18 14:42 CONCLUSION: Renal transplant ultrasound within normal limits. Physical Exam Vital signs: Vital Signs 08/01/18 18:00 08/01/18 20:00 08/02/18 00:00 Temperature 98.2 F 102.9 F H 97.8 F Pulse Rate 89 105 H 85 Respiratory Rate 18 18 15 Blood Pressure 117/51 L 143/65 H 99/53 L Pulse Oximetry 97 93 L 94 L 08/02/18 04:00 08/02/18 08:00 08/02/18 09:34 Temperature 97.4 F L 97.8 F Pulse Rate 82 80 Respiratory Rate 15 18 Blood Pressure 128/61 102/56 L Pulse Oximetry 95 94 L 97 08/02/18 12:00 08/02/18 16:00 Temperature 98.4 F 97.9 F Pulse Rate 94 H 84 Respiratory Rate 17 17 Blood Pressure 115/56 L 120/56 L Pulse Oximetry 98 95 Intake & Output 08/01/18 08/02/18 08/02/18 18:59 06:59 18:59 Intake Total 1900 / 1900 1240 / 1240 200 / 200 Balance 1900 / 1900 1240 / 1240 200 / 200 Weight 58.9 kg 56 kg 60.3 kg Intake: IV 1900 / 1900 1000 / 1000 200 / 200 NS Inj 1,000 ML @ 95 mls/hr IV. 1000 / 1000 100 / 100 CONT .[id number] [facility] Rx#:[id number] Maxipime Inj 2,000 MG In NS Inj 100 / 100 100 / 100 100 ML @ 200 mls/hr IV.SIG Q12H [facility] Rx#:[id number] NS Inj 800 ML @ Wide Open IV. 1800 / 1800 SIG .Q0M [facility] Rx#:[id number] Oral 240 / 240 Other: # Voids 5 # Incontinent Voids 2 Weight On Admission 58.9 kg - Constitutional no acute distress - Routine HEENT Exam Head: Present: normocephalic, atraumatic Eye: Present: EOMI, PERRL - Routine Respiratory Exam Present: CTA bilaterally. Absent: accessory muscle use, wheezes, crackles - Routine Cardiovascular Exam Present: RRR, S1, S2 - Routine Abdominal Exam Present: soft, normoactive bowel sounds. Absent: distended - Routine Extremities Exam Absent: cyanosis, clubbing, edema - Routine Skin Exam Present: intact, cyanosis, dry - Routine Neurological Exam Present: alert, oriented X3. Absent: motor deficit (more well appearing today overall. ) Assessment and Plan - Assessment (1) Sepsis Code(s): A41.9 - Sepsis, unspecified organism Status: Acute (2) Acute pyelonephritis Code(s): N10 - Acute pyelonephritis Status: Acute (3) Renal transplant recipient Code(s): Z94.0 - Kidney transplant status Status: Acute - Assessment and Plan Sepsis 2/2 pyelonephritis in solitary transplanted kidney - improving Empiric cefepime, gram negative rods, follow s/s Monitor renal function closely continue home immunosuppressants for now Nephrology following, thank you, this is a great service for her Gram negative bacteria assume same as above, continue same treatment. Will repeat blood cultures 48 hrs DM monitor with SSI for now dont have tradjenta here CAD cont home meds Anxiety cont home meds GERD cont home meds
[2018-08-02] MEDS: Tacrolimus 0.5 MG Capsule PO SCH (18:16)
--- NOTE | 2018-08-02 21:22 | ECG ---
Date Performed: 08/01/2018 Time Performed: 14:25:56 PTAGE: 68 years EKG: Sinus rhythm NORMAL ECG PREVIOUS TRACING : 02/10/2017 08.44 Since the previous tracing, no significant change noted DOCTOR: Noel Munoz Interpretating Date/Time 08/02/2018 21:20:02
[2018-08-03] MEDS: Sodium Chloride 0.45 % Inj 1,000 ML IV.CONT SCH (01:22)
[2018-08-03] MEDS: Insulin NovoLOG Aspart Correctional Sugar Inj SQ SCH ×4 (07:39→21:32)
--- NOTE | 2018-08-03 08:27 | P.PNFP ---
Subjective Interval history: Ms Farley was seen on rounds this morning. She reports that she is feeling much better. She endorses urinary frequency which she attributes to all of the IV fluids. There is single episode of diarrhea yesterday but she believes this is due to some milk in her lunch of which she has a sensitivity to. She denies any nausea, vomiting, flank pain, dysuria, chest pain, shortness of breath, abdominal pain. <Miracle Holt - 08/03/18 09:51> Results - Labs Result diagrams: 08/03/18 08:42 08/03/18 08:42 <Polo Crespo - 08/03/18 21:09> Abnormal lab results 08/02/18 08/03/18 08/03/18 Range/Units 21:16 07:37 08:42 RBC (4.00-5.30) mil/mm3 Hgb (11.6-15.3) gm/dL Hct (35.0-46.0) % Plt Count (150-450) th/mm3 Neut % (Auto) (16.0-70.0) % Lymph # (Auto) (1.0-4.8) th/mm3 Chloride 110 H (98-107) meq/L Estimated GFR 74 L (>89) mL/min POC Glucose 179 H 119 H (68-110) mg/dl Random Glucose 163 H (74-106) mg/dL 08/03/18 08/03/18 08/03/18 Range/Units 08:42 12:21 17:04 RBC 3.94 L (4.00-5.30) mil/mm3 Hgb 11.3 L (11.6-15.3) gm/dL Hct 34.7 L (35.0-46.0) % Plt Count 135 L (150-450) th/mm3 Neut % (Auto) 80.6 H (16.0-70.0) % Lymph # (Auto) 0.9 L (1.0-4.8) th/mm3 Chloride (98-107) meq/L Estimated GFR (>89) mL/min POC Glucose 119 H 225 H (68-110) mg/dl Random Glucose (74-106) mg/dL 08/03/18 Range/Units 20:07 RBC (4.00-5.30) mil/mm3 Hgb (11.6-15.3) gm/dL Hct (35.0-46.0) % Plt Count (150-450) th/mm3 Neut % (Auto) (16.0-70.0) % Lymph # (Auto) (1.0-4.8) th/mm3 Chloride (98-107) meq/L Estimated GFR (>89) mL/min POC Glucose 114 H (68-110) mg/dl Random Glucose (74-106) mg/dL Short CBC 08/03/18 Range/Units 08:42 WBC 7.6 (4.0-11.0) th/mm3 Hgb 11.3 L (11.6-15.3) gm/dL Hct 34.7 L (35.0-46.0) % Plt Count 135 L (150-450) th/mm3 BMP 08/03/18 08:42 Sodium 141 Potassium 3.5 Chloride 110 H Carbon Dioxide 22.5 BUN 13 Creatinine 0.77 Calcium 8.7 D <Polo Crespo - 08/03/18 21:09> Abnormal lab results 08/01/18 08/01/18 08/02/18 Range/Units 13:15 13:50 07:06 WBC 13.3 H (4.0-11.0) th/mm3 RBC 3.96 L (4.00-5.30) mil/mm3 Hgb 11.3 L (11.6-15.3) gm/dL Hct 34.7 L (35.0-46.0) % Plt Count 132 L (150-450) th/mm3 Chloride (98-107) meq/L Estimated GFR (>89) mL/min POC Glucose (68-110) mg/dl Random Glucose (74-106) mg/dL Calcium (8.5-10.1) mg/dL Urine Clarity Hazy H (Clear) Urine Protein 30 H (Neg-Trace) mg/dL Urine Occult Blood Small H (Negative) Urine Nitrate Positive H (Negative) Ur Leukocyte Esterase Large H (Negative) Urine WBC Clumps Many H (None) Urine Bacteria Moderate H (None) /hpf Tacrolimus 2.6 L (5.0-20.0) ng/mL 08/02/18 08/02/18 08/02/18 Range/Units 07:06 16:28 21:16 WBC (4.0-11.0) th/mm3 RBC (4.00-5.30) mil/mm3 Hgb (11.6-15.3) gm/dL Hct (35.0-46.0) % Plt Count (150-450) th/mm3 Chloride 112 H D (98-107) meq/L Estimated GFR 67 L (>89) mL/min POC Glucose 181 H 179 H (68-110) mg/dl Random Glucose 125 H (74-106) mg/dL Calcium 7.9 L D (8.5-10.1) mg/dL Urine Clarity (Clear) Urine Protein (Neg-Trace) mg/dL Urine Occult Blood (Negative) Urine Nitrate (Negative) Ur Leukocyte Esterase (Negative) Urine WBC Clumps (None) Urine Bacteria (None) /hpf Tacrolimus (5.0-20.0) ng/mL 08/03/18 Range/Units 07:37 WBC (4.0-11.0) th/mm3 RBC (4.00-5.30) mil/mm3 Hgb (11.6-15.3) gm/dL Hct (35.0-46.0) % Plt Count (150-450) th/mm3 Chloride (98-107) meq/L Estimated GFR (>89) mL/min POC Glucose 119 H (68-110) mg/dl Random Glucose (74-106) mg/dL Calcium (8.5-10.1) mg/dL Urine Clarity (Clear) Urine Protein (Neg-Trace) mg/dL Urine Occult Blood (Negative) Urine Nitrate (Negative) Ur Leukocyte Esterase (Negative) Urine WBC Clumps (None) Urine Bacteria (None) /hpf Tacrolimus (5.0-20.0) ng/mL Short CBC 08/02/18 Range/Units 07:06 WBC 13.3 H (4.0-11.0) th/mm3 Hgb 11.3 L (11.6-15.3) gm/dL Hct 34.7 L (35.0-46.0) % Plt Count 132 L (150-450) th/mm3 BMP 08/02/18 07:06 Sodium 144 D Potassium 3.7 Chloride 112 H D Carbon Dioxide 24.4 BUN 13 Creatinine 0.84 Calcium 7.9 L D Urine 08/01/18 Range/Units 13:50 Urine Color Yellow (Yellw/Straw) Urine Clarity Hazy H (Clear) Urine pH 6.0 (5.0-8.5) Ur Specific [place] 1.010 (1.002-1.035) Urine Protein 30 H (Neg-Trace) mg/dL Urine Glucose (UA) 50 (Negative) mg/dL <Miracle Holt - 08/03/18 08:27> Physical Exam Vital signs: Vital Signs 08/03/18 00:00 08/03/18 04:00 08/03/18 08:00 Temperature 98 F 97.4 F L 97.9 F Pulse Rate 81 84 94 H Respiratory Rate 16 14 18 Blood Pressure 136/63 139/64 131/67 Pulse Oximetry 96 94 L 95 08/03/18 10:22 08/03/18 12:00 08/03/18 16:00 Temperature 97.4 F L 98.2 F Pulse Rate 77 80 Respiratory Rate 18 18 Blood Pressure 145/63 H 129/67 Pulse Oximetry 98 99 97 Intake & Output 08/03/18 08/03/18 08/04/18 06:59 18:59 06:59 Intake Total 1780 / 1780 600 / 600 Output Total 2100 / 2100 2300 / 2300 Balance -320 / -320 -1700 / -1700 Weight 56.9 kg Intake: IV 1100 / 1100 600 / 600 1/2 Normal Saline Inj 1,000 ML 1000 / 1000 500 / 500 @ 75 mls/hr IV.CONT .[id number] [facility] Rx#:[id number] Maxipime Inj 2,000 MG In NS Inj 100 / 100 100 / 100 100 ML @ 200 mls/hr IV.SIG Q12H [facility] Rx#:[id number] Oral 680 / 680 Output: Urine 2100 / 2100 2300 / 2300 <Polo Crespo - 08/03/18 21:09> Vital Signs 08/02/18 09:34 08/02/18 12:00 08/02/18 16:00 Temperature 98.4 F 97.9 F Pulse Rate 94 H 84 Respiratory Rate 17 17 Blood Pressure 115/56 L 120/56 L Pulse Oximetry 97 98 95 08/02/18 20:00 08/02/18 20:42 08/03/18 00:00 Temperature 98.4 F 98 F Pulse Rate 88 81 Respiratory Rate 18 16 Blood Pressure 128/78 136/63 Pulse Oximetry 96 97 96 01/08/19 04:00 Temperature 97.4 F L Pulse Rate 84 Respiratory Rate 14 Blood Pressure 139/64 Pulse Oximetry 94 L Intake & Output 08/02/18 08/03/18 08/03/18 18:59 06:59 18:59 Intake Total 920 / 920 1780 / 1780 Output Total 2100 / 2100 700 / 700 Balance 920 / 920 -320 / -320 -700 / -700 Weight 60.3 kg 56.9 kg Intake: IV 200 / 200 1100 / 1100 NS Inj 1,000 ML @ 95 mls/hr IV. 100 / 100 CONT .[id number] [facility] Rx#:[id number] 1/2 Normal Saline Inj 1,000 ML 1000 / 1000 @ 75 mls/hr IV.CONT .[id number] [facility] Rx#:[id number] Maxipime Inj 2,000 MG In NS Inj 100 / 100 100 / 100 100 ML @ 200 mls/hr IV.SIG Q12H [facility] Rx#:[id number] Oral 720 / 720 680 / 680 Output: Urine 2099 / 2099 700 / 700 Other: # Voids 3 # Bowel Movements 0 <Miracle Holt - 08/03/18 08:27> Narrative: GENERAL: Well-appearing female, no acute distress resting in bed, eating breakfast CARDIOVASCULAR: Regular rate and rhythm without murmurs, gallops, or rubs. RESPIRATORY: Breath sounds equal bilaterally. No accessory muscle use. GASTROINTESTINAL: Abdomen soft, non-tender, nondistended. Scars noted from previous surgeries MUSCULOSKELETAL: No cyanosis, or edema. BACK: No CVA tenderness. <Miracle Holt - 08/03/18 09:51> Assessment and Plan - Assessment (1) Sepsis Code(s): A41.9 - Sepsis, unspecified organism Status: Acute (2) Acute pyelonephritis Code(s): N10 - Acute pyelonephritis Status: Acute (3) Renal transplant recipient Code(s): Z94.0 - Kidney transplant status Status: Acute (4) Anxiety Code(s): F41.9 - Anxiety disorder, unspecified Status: Acute (5) GERD (gastroesophageal reflux disease) Code(s): K21.9 - Gastro-esophageal reflux disease without esophagitis Status: Acute <Polo Crespo - 08/03/18 21:09> (1) Sepsis Code(s): A41.9 - Sepsis, unspecified organism Status: Acute Plan: -Patient met sepsis criteria on admission with pulse of 107, WBC 14 -Urine cultures growing E. coli, sensitive to cephalosporins. -White blood cell count trending downward -Blood cultures drawn, preliminary culture growing E. coli -Repeat blood cultures today after approximately 48 hours of antibiotics -Acetaminophen as needed for fevers -Ibuprofen to be used judiciously for breakthrough fevers, will allow temp up to 101.5 while on acetaminophen -CBC daily in a.m. -See plan for pyelonephritis below (2) Acute pyelonephritis Code(s): N10 - Acute pyelonephritis Status: Acute Plan: -Status post renal transplant -Ultrasound kidneys and bladder, within normal limits - IV fluids DC'd per nephrology recommendations -Cefepime 2 g every 12 hours (3) Renal transplant recipient Code(s): Z94.0 - Kidney transplant status Status: Acute Plan: -Patient followed by Dr. Mary nephrology. Apparently this physician has been retired but is still following the patient. -Nephrology consulted, appreciate recommendations -Continue home immunosuppressants -Creatinine 1.03 at this time -BMPs daily -Avoid nephrotoxic agents as possible (4) Anxiety Code(s): F41.9 - Anxiety disorder, unspecified Status: Acute Plan: Continue home medication PRN (5) GERD (gastroesophageal reflux disease) Code(s): K21.9 - Gastro-esophageal reflux disease without esophagitis Status: Acute Plan: Continue home medication <Miracle Holt - 08/03/18 12:28> - Assessment and Plan Discussed Condition With: Evelina Crespo and Roma <Miracle Holt - 08/03/18 08:27> - Attending Attestation The exam, history, and the medical decision-making described in the above note were completed with the assistance of the resident physician. I reviewed and agree with the findings presented. I attest that I had a [id number] encounter with the patient on the same day, and personally performed and documented my assessment and findings in the medical record. Sepsis 2/2 E. coli pyelonephritis and bacteremia in solitary transplanted kidney - improving Empiric cefepime, E coli follow s/s, rpt blood cx pending renal function improving continue home immunosuppressants for now, tacrolimus level low Nephrology following, thank you, this is a great service for her may d/c with oral abx for 14d course as long as bacteria same s/s in blood DM monitor with SSI for now dont have tradjenta here CAD cont home meds Anxiety cont home meds GERD cont home meds <Polo Crespo - 08/03/18 21:09>
[2018-08-03 09:32] LABS: Baso % (Auto) 0.4 % (0.0-2.0); Eos # (Auto) 0.1 th/mm3 (0.0-0.4); Eos % (Auto) 1.2 % (0.0-4.0); Hematocrit 34.7 % (35.0-46.0); Hemoglobin 11.3 gm/dL (11.6-15.3); Lymph # (Auto) 0.9 th/mm3 (1.0-4.8); Lymph % (Auto) 11.7 % (9.0-44.0); Mean Corpuscular HGB Conc 32.5 % (32.0-36.0); Mean Corpuscular Hemoglobin 28.6 pg (27.0-34.0); Mean Corpuscular Volume 88.1 fL (80.0-100.0); Mean Platelet Volume 10.3 fL (7.0-11.0); Mono # (Auto) 0.5 th/mm3 (0.0-0.9); Mono % (Auto) 6.1 % (0.0-8.0); Neut # (Auto) 6.1 th/mm3 (1.8-7.7); Neut % (Auto) 80.6 % (16.0-70.0); Platelet Count 135 th/mm3 (150-450); Red Blood Count 3.94 mil/mm3 (4.00-5.30); Red Cell Distribution Width 13.9 % (11.6-17.2); White Blood Count 7.6 th/mm3 (4.0-11.0)
[2018-08-03 09:56] LABS: Calcium 8.7 mg/dL (8.5-10.1); Carbon Dioxide 22.5 meq/L (21.0-32.0); Potassium 3.5 meq/L (3.5-5.1)
[2018-08-03] MEDS: Mycophenolate Mofetil 250 MG Capsule PO SCH ×2 (09:56→21:31)
[2018-08-03] MEDS: predniSONE 5 MG Tablet PO SCH (09:56)
[2018-08-03] MEDS: Benzocaine/Menthol 15 MG/3.6 MG SF Lozenge BUCCAL PRN (09:56)
[2018-08-03] MEDS: Enoxaparin Inj 40 MG/0.4 ML Syringe SQ SCH (09:57)
[2018-08-03] MEDS: Acetaminophen 325 MG Tablet PO PRN (10:00)
--- NOTE | 2018-08-03 10:26 | P.PNNP ---
Subjective Interval history: patient is afebrile. Urine culture grew E.coli. Currently on Cefepime. Physical Exam Vital signs: Vital Signs 08/02/18 12:00 08/02/18 16:00 08/02/18 20:00 Temperature 98.4 F 97.9 F 98.4 F Pulse Rate 94 H 84 88 Respiratory Rate 17 17 18 Blood Pressure 115/56 L 120/56 L 128/78 Pulse Oximetry 98 95 96 08/02/18 20:42 08/03/18 00:00 08/03/18 04:00 Temperature 98 F 97.4 F L Pulse Rate 81 84 Respiratory Rate 16 14 Blood Pressure 136/63 139/64 Pulse Oximetry 97 96 94 L 08/03/18 10:22 Temperature Pulse Rate Respiratory Rate Blood Pressure Pulse Oximetry 98 Intake & Output 08/02/18 08/03/18 08/03/18 18:59 06:59 18:59 Intake Total 920 / 920 1780 / 1780 Output Total 2100 / 2100 700 / 700 Balance 920 / 920 -320 / -320 -700 / -700 Weight 60.3 kg 56.9 kg Intake: IV 200 / 200 1100 / 1100 NS Inj 1,000 ML @ 95 mls/hr IV. 100 / 100 CONT .[id number] [facility] Rx#:[id number] 1/2 Normal Saline Inj 1,000 ML 1000 / 1000 @ 75 mls/hr IV.CONT .[id number] [facility] Rx#:[id number] Maxipime Inj 2,000 MG In NS Inj 100 / 100 100 / 100 100 ML @ 200 mls/hr IV.SIG Q12H [facility] Rx#:[id number] Oral 720 / 720 680 / 680 Output: Urine 2100 / 2100 700 / 700 Other: # Voids 3 # Bowel Movements 0 Narrative: GENERAL: Well-appearing female, no acute distress resting in bed, eating breakfast CARDIOVASCULAR: Regular rate and rhythm without murmurs, gallops, or rubs. RESPIRATORY: Breath sounds equal bilaterally. No accessory muscle use. GASTROINTESTINAL: Abdomen soft, non-tender, nondistended. Scars noted from previous surgeries MUSCULOSKELETAL: No cyanosis, or edema. Assessment and Plan - Assessment (1) Sepsis Code(s): A41.9 - Sepsis, unspecified organism Status: Acute Plan: UTI with sepsis. Patient has E.coli sepsis. On Cefepime. Await identification and sensitivities. Monitor urine output and renal function. Encourage oral intake. I will discontinue IVF. (2) Acute pyelonephritis Code(s): N10 - Acute pyelonephritis Status: Acute Plan: Renal transplant US unremarkable. Continue antibiotic. (3) Renal transplant recipient Code(s): Z94.0 - Kidney transplant status Status: Acute Plan: Continue immunosuppressives as ordered. Tacrolimus level was low, I do not believe it was a trough level. ( trough level may be even lower). Repeat it. Continue Tacrolimus. (4) Type 2 diabetes mellitus Code(s): E11.9 - Type 2 diabetes mellitus without complications Status: Acute Plan: Patient was on Tradjenta at home. Insulin coverage to maintain blood glucose 140 of 180.
[2018-08-03] MEDS: Tacrolimus 0.5 MG Capsule PO SCH (18:14)
[2018-08-03] MEDS: ALPRAZolam 0.25 MG Tablet PO PRN (21:32)
[2018-08-04] MEDS: Benzocaine/Menthol 15 MG/3.6 MG SF Lozenge BUCCAL PRN (06:43)
[2018-08-04] MEDS: Insulin NovoLOG Aspart Correctional Sugar Inj SQ SCH ×4 (07:44→21:01)
[2018-08-04 08:09] LABS: Hematocrit 32.9 % (35.0-46.0); Hemoglobin 10.9 gm/dL (11.6-15.3); Mean Corpuscular HGB Conc 33.2 % (32.0-36.0); Mean Corpuscular Hemoglobin 28.6 pg (27.0-34.0); Mean Corpuscular Volume 86.1 fL (80.0-100.0); Mean Platelet Volume 10.1 fL (7.0-11.0); Platelet Count 161 th/mm3 (150-450); Red Blood Count 3.82 mil/mm3 (4.00-5.30); Red Cell Distribution Width 13.8 % (11.6-17.2); White Blood Count 4.8 th/mm3 (4.0-11.0)
[2018-08-04 08:35] LABS: Anion Gap 9 meq/L (5-15); Blood Urea Nitrogen 11 mg/dL (7-18); Calcium 8.9 mg/dL (8.5-10.1); Carbon Dioxide 21.9 meq/L (21.0-32.0); Chloride 113 meq/L (98-107); Glomerular Filtration Rate Greater Than 89 mL/min (>89); Glucose,Random 99 mg/dL (74-106); Potassium 3.3 meq/L (3.5-5.1); Sodium 144 meq/L (136-145)
[2018-08-04] MEDS: predniSONE 5 MG Tablet PO SCH (08:50)
[2018-08-04] MEDS: Enoxaparin Inj 40 MG/0.4 ML Syringe SQ SCH (08:50)
[2018-08-04] MEDS: Mycophenolate Mofetil 250 MG Capsule PO SCH ×2 (08:50→21:00)
--- NOTE | 2018-08-04 09:24 | P.PNNP ---
Subjective Interval history: she is doing well. No new complaints. Physical Exam Vital signs: Vital Signs 08/03/18 10:22 08/03/18 12:00 08/03/18 16:00 Temperature 97.4 F L 98.2 F Pulse Rate 77 80 Respiratory Rate 18 18 Blood Pressure 145/63 H 129/67 Pulse Oximetry 98 99 97 08/03/18 20:00 08/04/18 00:00 08/04/18 01:01 Temperature 97.9 F 97.8 F Pulse Rate 76 73 67 Respiratory Rate 17 16 Blood Pressure 152/70 H 141/68 H Pulse Oximetry 96 97 08/04/18 04:00 Temperature 97.8 F Pulse Rate 69 Respiratory Rate 16 Blood Pressure 145/65 H Pulse Oximetry 96 Intake & Output 08/03/18 08/04/18 08/04/18 18:59 06:59 18:59 Intake Total 600 / 600 1540 / 1540 Output Total 2300 / 2300 1999 Balance -1700 / -1700 -460 / -460 Weight 58.4 kg Intake: IV 600 / 600 100 / 100 1/2 Normal Saline Inj 1,000 ML 500 / 500 @ 75 mls/hr IV.CONT .[id number] [facility] Rx#:[id number] Maxipime Inj 2,000 MG In NS Inj 100 / 100 100 / 100 100 ML @ 200 mls/hr IV.SIG Q12H [facility] Rx#:[id number] Oral 1440 / 1440 Output: Urine 2300 / 2300 1999 Other: # Bowel Movements 0 Narrative: GENERAL: Alert, oriented. CARDIOVASCULAR: Regular rate and rhythm without murmurs, gallops, or rubs. RESPIRATORY: Breath sounds equal bilaterally. No accessory muscle use. GASTROINTESTINAL: Abdomen soft, non-tender, nondistended. Scars noted from previous surgeries MUSCULOSKELETAL: No cyanosis, or edema. BACK: No CVA tenderness. Assessment and Plan - Assessment (1) Sepsis Code(s): A41.9 - Sepsis, unspecified organism Status: Acute Plan: UTI with sepsis. Patient has E.coli sepsis. On Cefepime. Can be switched to Ceftriaxone. If repeat blood culture negative, can be switched to oral agent, or consider ID consult. Monitor urine output and renal function. (2) Acute pyelonephritis Code(s): N10 - Acute pyelonephritis Status: Acute Plan: Renal transplant US unremarkable. Continue antibiotic. (3) Renal transplant recipient Code(s): Z94.0 - Kidney transplant status Status: Acute Plan: Continue immunosuppressives as ordered. Tacrolimus level was low, I do not believe it was a trough level. ( trough level may be even lower). Repeat level ordered, pending. Continue Tacrolimus. (4) Type 2 diabetes mellitus Code(s): E11.9 - Type 2 diabetes mellitus without complications Status: Acute Plan: Patient was on Tradjenta at home. Insulin coverage to maintain blood glucose 140 of 180. - Attending Attestation Can be discharged from renal standpoint.
--- NOTE | 2018-08-04 10:11 | P.PNFP ---
Subjective Interval history: Ms Farley was seen on rounds this morning. She denies any new complaints. No nausea, vomiting, diarrhea, abdominal pain, flank pain, dysuria. She does report some increased anxiety regarding her illness and is questioning "did I do this to myself". She reports that she did sleep better last night now that she is off the IV fluids <Miracle Holt - 08/04/18 10:11> Results - Labs Result diagrams: 08/04/18 07:07 08/04/18 07:07 <Polo Crespo - 08/04/18 10:44> Abnormal lab results 08/03/18 08/03/18 08/03/18 Range/Units 12:21 17:04 20:07 RBC (4.00-5.30) mil/mm3 Hgb (11.6-15.3) gm/dL Hct (35.0-46.0) % Potassium (3.5-5.1) meq/L Chloride (98-107) meq/L POC Glucose 119 H 225 H 114 H (68-110) mg/dl 08/04/18 08/04/18 Range/Units 07:07 07:07 RBC 3.82 L (4.00-5.30) mil/mm3 Hgb 10.9 L (11.6-15.3) gm/dL Hct 32.9 L (35.0-46.0) % Potassium 3.3 L (3.5-5.1) meq/L Chloride 113 H (98-107) meq/L POC Glucose (68-110) mg/dl Short CBC 08/04/18 Range/Units 07:07 WBC 4.8 (4.0-11.0) th/mm3 Hgb 10.9 L (11.6-15.3) gm/dL Hct 32.9 L (35.0-46.0) % Plt Count 161 (150-450) th/mm3 BMP 08/04/18 07:07 Sodium 144 Potassium 3.3 L Chloride 113 H Carbon Dioxide 21.9 BUN 11 Creatinine 0.64 Calcium 8.9 <Polo Crespo - 08/04/18 10:44> Abnormal lab results 08/03/18 08/03/18 08/03/18 Range/Units 12:21 17:04 20:07 RBC (4.00-5.30) mil/mm3 Hgb (11.6-15.3) gm/dL Hct (35.0-46.0) % Potassium (3.5-5.1) meq/L Chloride (98-107) meq/L POC Glucose 119 H 225 H 114 H (68-110) mg/dl 08/04/18 08/04/18 Range/Units 07:07 07:07 RBC 3.82 L (4.00-5.30) mil/mm3 Hgb 10.9 L (11.6-15.3) gm/dL Hct 32.9 L (35.0-46.0) % Potassium 3.3 L (3.5-5.1) meq/L Chloride 113 H (98-107) meq/L POC Glucose (68-110) mg/dl Short CBC 08/04/18 Range/Units 07:07 WBC 4.8 (4.0-11.0) th/mm3 Hgb 10.9 L (11.6-15.3) gm/dL Hct 32.9 L (35.0-46.0) % Plt Count 161 (150-450) th/mm3 BMP 08/04/18 07:07 Sodium 144 Potassium 3.3 L Chloride 113 H Carbon Dioxide 21.9 BUN 11 Creatinine 0.64 Calcium 8.9 <Miracle Holt E - 08/04/18 10:11> Physical Exam Vital signs: Vital Signs 08/03/18 12:00 08/03/18 16:00 08/03/18 20:00 Temperature 97.4 F L 98.2 F 97.9 F Pulse Rate 77 80 76 Respiratory Rate 18 18 17 Blood Pressure 145/63 H 129/67 152/70 H Pulse Oximetry 99 97 96 08/04/18 00:00 08/04/18 01:01 08/04/18 04:00 Temperature 97.8 F 97.8 F Pulse Rate 73 67 69 Respiratory Rate 16 16 Blood Pressure 141/68 H 145/65 H Pulse Oximetry 97 96 08/04/18 08:00 Temperature 97.8 F Pulse Rate 85 Respiratory Rate 16 Blood Pressure 126/66 Pulse Oximetry 96 Intake & Output 08/03/18 08/04/18 08/04/18 18:59 06:59 18:59 Intake Total 600 / 600 1540 / 1540 Output Total 2300 / 2300 1999 Balance -1700 / -1700 -460 / -460 Weight 58.4 kg Intake: IV 600 / 600 100 / 100 1/2 Normal Saline Inj 1,000 ML 500 / 500 @ 75 mls/hr IV.CONT .[id number] [facility] Rx#:[id number] Maxipime Inj 2,000 MG In NS Inj 100 / 100 100 / 100 100 ML @ 200 mls/hr IV.SIG Q12H [facility] Rx#:[id number] Oral 1440 / 1440 Output: Urine 2300 / 2300 1999 Other: # Bowel Movements 0 <Polo Crespo - 08/04/18 10:44> Vital Signs 08/03/18 10:22 08/03/18 12:00 08/03/18 16:00 Temperature 97.4 F L 98.2 F Pulse Rate 77 80 Respiratory Rate 18 18 Blood Pressure 145/63 H 129/67 Pulse Oximetry 98 99 97 08/03/18 20:00 08/04/18 00:00 08/04/18 01:01 Temperature 97.9 F 97.8 F Pulse Rate 76 73 67 Respiratory Rate 17 16 Blood Pressure 152/70 H 141/68 H Pulse Oximetry 96 97 08/04/18 04:00 08/04/18 08:00 Temperature 97.8 F 97.8 F Pulse Rate 69 85 Respiratory Rate 16 16 Blood Pressure 145/65 H 126/66 Pulse Oximetry 96 96 Intake & Output 08/03/18 08/04/18 08/04/18 18:59 06:59 18:59 Intake Total 600 / 600 1540 / 1540 Output Total 2300 / 2300 1999 Balance -1700 / -1700 -460 / -460 Weight 58.4 kg Intake: IV 600 / 600 100 / 100 1/2 Normal Saline Inj 1,000 ML 500 / 500 @ 75 mls/hr IV.CONT .[id number] [facility] Rx#:[id number] Maxipime Inj 2,000 MG In NS Inj 100 / 100 100 / 100 100 ML @ 200 mls/hr IV.SIG Q12H [facility] Rx#:[id number] Oral 1440 / 1440 Output: Urine 2300 / 2300 1999 Other: # Bowel Movements 0 <Miracle Holt - 08/04/18 10:11> Narrative: GENERAL: Well-appearing female, no acute distress resting in bed, eating breakfast CARDIOVASCULAR: Regular rate and rhythm without murmurs, gallops, or rubs. RESPIRATORY: Breath sounds equal bilaterally. No accessory muscle use. GASTROINTESTINAL: Abdomen soft, non-tender, nondistended. Scars noted from previous surgeries MUSCULOSKELETAL: No cyanosis, or edema. BACK: No CVA tenderness. <Rey Miracle Dominguez E - 08/04/18 10:11> Assessment and Plan - Assessment (1) Sepsis Code(s): A41.9 - Sepsis, unspecified organism Status: Acute (2) Acute pyelonephritis Code(s): N10 - Acute pyelonephritis Status: Acute (3) Renal transplant recipient Code(s): Z94.0 - Kidney transplant status Status: Acute (4) Anxiety Code(s): F41.9 - Anxiety disorder, unspecified Status: Acute (5) GERD (gastroesophageal reflux disease) Code(s): K21.9 - Gastro-esophageal reflux disease without esophagitis Status: Acute <Polo Crespo - 08/04/18 10:44> (1) Sepsis Code(s): A41.9 - Sepsis, unspecified organism Status: Acute Plan: -Patient met sepsis criteria on admission with pulse of 107, WBC 14 -Urine cultures growing E. coli, sensitive to cephalosporins. -White blood cell count trending downward -Blood cultures drawn, preliminary culture growing E. coli sensitive to cephalosporins -Repeat blood cultures drawn yesterday -If preliminary blood cultures today are negative can transition patient to p.o. Keflex -Acetaminophen as needed for fevers -Ibuprofen to be used judiciously for breakthrough fevers, will allow temp up to 101.5 while on acetaminophen -CBC daily in a.m. -See plan for pyelonephritis below (2) Acute pyelonephritis Code(s): N10 - Acute pyelonephritis Status: Acute Plan: -Status post renal transplant -Ultrasound kidneys and bladder, within normal limits - IV fluids DC'd per nephrology recommendations -Cefepime 2 g every 12 hours, consideration of transition to p.o. antibiotics later today (3) Renal transplant recipient Code(s): Z94.0 - Kidney transplant status Status: Acute Plan: -Patient followed by Dr. Mayr nephrology. Apparently this physician has been retired but is still following the patient. -Nephrology consulted, appreciate recommendations -Continue home immunosuppressants -Creatinine 1.03 at this time -BMPs daily -Avoid nephrotoxic agents as possible -Cleared from renal standpoint for discharge (4) Anxiety Code(s): F41.9 - Anxiety disorder, unspecified Status: Acute Plan: Worsening while in hospital, patient counseling done at bedside. Reassurance given Continue home medication PRN (5) GERD (gastroesophageal reflux disease) Code(s): K21.9 - Gastro-esophageal reflux disease without esophagitis Status: Acute Plan: Continue home medication <Miracle Holt - 08/04/18 10:04> - Assessment and Plan Discussed Condition With: Evelina Crespo and Roma <Miracle Holt - 08/04/18 10:11> - Attending Attestation The exam, history, and the medical decision-making described in the above note were completed with the assistance of the resident physician. I reviewed and agree with the findings presented. I attest that I had a [id number] encounter with the patient on the same day, and personally performed and documented my assessment and findings in the medical record. Cr actually down to 0.63 today, besides some guilt she is feeling much better today. provided reassurance. no fevers If blood culture s/s matches urine culture s/s can transition to PO as long as blood cx negative at 24 hrs Can d/c when 2nd blood cx neg at 48 hrs. <Polo Crespo - 08/04/18 10:44>
[2018-08-04] MEDS: Tacrolimus 0.5 MG Capsule PO SCH (17:50)
[2018-08-04] MEDS: ALPRAZolam 0.25 MG Tablet PO PRN (21:01)
[2018-08-05 08:12] LABS: Hematocrit 36.3 % (35.0-46.0); Mean Corpuscular HGB Conc 32.9 % (32.0-36.0); Mean Corpuscular Hemoglobin 28.4 pg (27.0-34.0); Mean Corpuscular Volume 86.3 fL (80.0-100.0); Mean Platelet Volume 9.7 fL (7.0-11.0); Platelet Count 190 th/mm3 (150-450); Red Blood Count 4.21 mil/mm3 (4.00-5.30); Red Cell Distribution Width 13.5 % (11.6-17.2); White Blood Count 5.7 th/mm3 (4.0-11.0)
[2018-08-05] MEDS: predniSONE 5 MG Tablet PO SCH (08:12)
[2018-08-05] MEDS: Mycophenolate Mofetil 250 MG Capsule PO SCH (08:13)
[2018-08-05] MEDS: Enoxaparin Inj 40 MG/0.4 ML Syringe SQ SCH (08:14)
[2018-08-05] MEDS: Acetaminophen 325 MG Tablet PO PRN (08:22)
--- NOTE | 2018-08-05 08:31 | P.PNFP ---
Subjective Interval history: Ms Farley was seen on rounds this morning. She reports that she feels well today. She believes her mood is improved from yesterday and she was able to get a bit more sleep last night. She is eating a regular diet without difficulties. She denies any fevers, chills, nausea, vomiting, diarrhea, abdominal pain, chest pain, shortness of breath. <Miracle Holt - 08/05/18 08:31> Results - Labs Result diagrams: 08/05/18 07:31 08/05/18 07:31 <Polo Crespo - 08/05/18 10:42> Abnormal lab results 08/04/18 08/04/18 08/04/18 Range/Units 12:12 16:57 20:34 Potassium (3.5-5.1) meq/L Chloride (98-107) meq/L POC Glucose 139 H 188 H 178 H (68-110) mg/dl Random Glucose (74-106) mg/dL 08/05/18 08/05/18 Range/Units 07:31 07:42 Potassium 3.4 L (3.5-5.1) meq/L Chloride 110 H (98-107) meq/L POC Glucose 118 H (68-110) mg/dl Random Glucose 119 H (74-106) mg/dL Short CBC 08/05/18 Range/Units 07:31 WBC 5.7 (4.0-11.0) th/mm3 Hgb 12.0 (11.6-15.3) gm/dL Hct 36.3 (35.0-46.0) % Plt Count 190 (150-450) th/mm3 BMP 08/05/18 07:31 Sodium 142 Potassium 3.4 L Chloride 110 H Carbon Dioxide 24.0 BUN 12 Creatinine 0.65 Calcium 9.4 <Polo Crespo - 08/05/18 10:42> Abnormal lab results 08/04/18 08/04/18 08/04/18 Range/Units 07:07 12:12 16:57 Potassium 3.3 L (3.5-5.1) meq/L Chloride 113 H (98-107) meq/L POC Glucose 139 H 188 H (68-110) mg/dl 08/04/18 08/05/18 Range/Units 20:34 07:42 Potassium (3.5-5.1) meq/L Chloride (98-107) meq/L POC Glucose 178 H 118 H (68-110) mg/dl Short CBC 08/05/18 Range/Units 07:31 WBC 5.7 (4.0-11.0) th/mm3 Hgb 12.0 (11.6-15.3) gm/dL Hct 36.3 (35.0-46.0) % Plt Count 190 (150-450) th/mm3 BMP 08/04/18 07:07 Sodium 144 Potassium 3.3 L Chloride 113 H Carbon Dioxide 21.9 BUN 11 Creatinine 0.64 Calcium 8.9 <Rey Miracle Dominguez E - 08/05/18 08:31> Physical Exam Vital signs: Vital Signs 08/04/18 12:00 08/04/18 16:00 08/04/18 20:00 Temperature 97.8 F 97.9 F 97.7 F Pulse Rate 73 77 77 Respiratory Rate 16 16 18 Blood Pressure 127/80 121/60 135/64 Pulse Oximetry 96 98 97 08/05/18 00:00 08/05/18 04:00 08/05/18 08:00 Temperature 97.1 F L 97.4 F L 97.7 F Pulse Rate 72 72 70 Respiratory Rate 17 17 18 Blood Pressure 140/69 146/69 H 149/66 H Pulse Oximetry 97 94 L 95 Intake & Output 08/04/18 08/05/18 08/05/18 18:59 06:59 18:59 Intake Total 660 / 660 2160 / 2160 Output Total 1600 / 1600 2350 / 2350 Balance -940 / -940 -190 / -190 Weight 60.4 kg Intake: IV 100 / 100 Maxipime Inj 2,000 MG In NS Inj 100 / 100 100 ML @ 200 mls/hr IV.SIG Q12H [facility] Rx#:[id number] Oral 560 / 560 2160 / 2160 Output: Urine 1600 / 1600 2350 / 2350 Other: Date of Last Bowel Movement 08/04/18 08/04/18 # Bowel Movements 1 2 <Polo Crespo - 08/05/18 10:42> Vital Signs 08/04/18 12:00 08/04/18 16:00 08/04/18 20:00 Temperature 97.8 F 97.9 F 97.7 F Pulse Rate 73 77 77 Respiratory Rate 16 16 18 Blood Pressure 127/80 121/60 135/64 Pulse Oximetry 96 98 97 08/05/18 00:00 08/05/18 04:00 Temperature 97.1 F L 97.4 F L Pulse Rate 72 72 Respiratory Rate 17 17 Blood Pressure 140/69 146/69 H Pulse Oximetry 97 94 L Intake & Output 08/04/18 08/05/18 08/05/18 18:59 06:59 18:59 Intake Total 660 / 660 2160 / 2160 Output Total 1600 / 1600 2350 / 2350 Balance -940 / -940 -190 / -190 Weight 60.4 kg Intake: IV 100 / 100 Maxipime Inj 2,000 MG In NS Inj 100 / 100 100 ML @ 200 mls/hr IV.SIG Q12H [facility] Rx#:[id number] Oral 560 / 560 2160 / 2160 Output: Urine 1600 / 1600 2350 / 2350 Other: Date of Last Bowel Movement 08/04/18 08/04/18 # Bowel Movements 1 2 <Miracle Holt 08/05/18 08:31> Narrative: GENERAL: Well-appearing female, no acute distress resting in bed CARDIOVASCULAR: Regular rate and rhythm without murmurs, gallops, or rubs. RESPIRATORY: Breath sounds equal bilaterally. No accessory muscle use. GASTROINTESTINAL: Abdomen soft, non-tender, nondistended. Scars noted from previous surgeries BACK: No CVA tenderness. Psychiatric: Patient not tearful on exam, appears to have less guilt/blame than exam yesterday <Miracle Holt 08/05/18 08:31> Assessment and Plan - Assessment (1) Sepsis Code(s): A41.9 - Sepsis, unspecified organism Status: Acute (2) Acute pyelonephritis Code(s): N10 - Acute pyelonephritis Status: Acute (3) Renal transplant recipient Code(s): Z94.0 - Kidney transplant status Status: Acute (4) Anxiety Code(s): F41.9 - Anxiety disorder, unspecified Status: Acute (5) GERD (gastroesophageal reflux disease) Code(s): K21.9 - Gastro-esophageal reflux disease without esophagitis Status: Acute <Polo Crespo - 08/05/18 10:42> (1) Sepsis Code(s): A41.9 - Sepsis, unspecified organism Status: Acute Plan: -Patient met sepsis criteria on admission with pulse of 107, WBC 14 -Urine cultures growing E. coli, sensitive to cephalosporins. -White blood cell count stable -Blood cultures drawn, growing E. coli sensitive to cephalosporins -Repeat blood cultures no growth to date x 1 day -Patient transitioned to p.o. Keflex yesterday evening -Cefepime IV DC'd yesterday -Acetaminophen as needed for fevers -Ibuprofen to be used judiciously for breakthrough fevers, will allow temp up to 101.5 while on acetaminophen -CBC daily in a.m. -See plan for pyelonephritis below (2) Acute pyelonephritis Code(s): N10 - Acute pyelonephritis Status: Acute Plan: -Status post renal transplant -Ultrasound kidneys and bladder, within normal limits - IV fluids DC'd per nephrology recommendations -Cefepime 2 g every 12 hours DC'd yesterday -Patient started on p.o. Keflex 500 mg 3 times daily yesterday (3) Renal transplant recipient Code(s): Z94.0 - Kidney transplant status Status: Acute Plan: -Patient followed by Dr. Mary nephrology. Apparently this physician has been retired but is still following the patient. -Nephrology consulted, appreciate recommendations -Continue home immunosuppressants -Creatinine stable at this time -BMPs daily -Avoid nephrotoxic agents as possible -Cleared from renal standpoint for discharge (4) Anxiety Code(s): F41.9 - Anxiety disorder, unspecified Status: Acute Plan: Appears improved from yesterday Continue home medication PRN (5) GERD (gastroesophageal reflux disease) Code(s): K21.9 - Gastro-esophageal reflux disease without esophagitis Status: Acute Plan: Continue home medication <Miracle Holt - 08/05/18 08:23> - Assessment and Plan Discussed Condition With: Evelina Crespo and Roma <Miracle Hlot - 08/05/18 08:31> - Attending Attestation The exam, history, and the medical decision-making described in the above note were completed with the assistance of the resident physician. I reviewed and agree with the findings presented. I attest that I had a [id number] encounter with the patient on the same day, and personally performed and documented my assessment and findings in the medical record. Continuing to improve. no n/v. no fevers since 08/01. no cva tenderness or pain in pelvis where transplanted kidney is, no suprapubic pain. transitioned to PO when 24hrs negative repeat blood cultures. If blood cultures neg at 48hrs today, will send home with keflex to complete full 14d course. If positive, will start ancef and repeat blood cultures and she will not discharge. <Polo Crespo - 08/05/18 10:42>
[2018-08-05 08:35] LABS: Anion Gap 8 meq/L (5-15); Blood Urea Nitrogen 12 mg/dL (7-18); Calcium 9.4 mg/dL (8.5-10.1); Chloride 110 meq/L (98-107); Glomerular Filtration Rate Greater Than 89 mL/min (>89); Glucose,Random 119 mg/dL (74-106); Potassium 3.4 meq/L (3.5-5.1); Sodium 142 meq/L (136-145)
[2018-08-05 08:48] VITALS: BP 149/66; RESP 18; TEMP 97.7; O2SAT 95
[2018-08-05 09:17] VITALS: PULSE 70
[2018-08-05] MEDS: Insulin NovoLOG Aspart Correctional Sugar Inj SQ SCH ×2 (09:19→12:20)
--- NOTE | 2018-08-05 10:40 | P.PNNP ---
Subjective Interval history: Patient was seen, no distress, no complaints. Can be discharged from a renal standpoint. <Bárbara Florence - Last Filed: 08/05/18 10:35> Physical Exam Vital signs: Vital Signs 08/04/18 12:00 08/04/18 16:00 08/04/18 20:00 Temperature 97.8 F 97.9 F 97.7 F Pulse Rate 73 77 77 Respiratory Rate 16 16 18 Blood Pressure 127/80 121/60 135/64 Pulse Oximetry 96 98 97 08/05/18 00:00 08/05/18 04:00 08/05/18 08:00 Temperature 97.1 F L 97.4 F L 97.7 F Pulse Rate 72 72 70 Respiratory Rate 17 17 18 Blood Pressure 140/69 146/69 H 149/66 H Pulse Oximetry 97 94 L 95 Intake & Output 08/04/18 08/05/18 08/05/18 18:59 06:59 18:59 Intake Total 660 / 660 2160 / 2160 Output Total 1600 / 1600 2350 / 2350 Balance -940 / -940 -190 / -190 Weight 60.4 kg Intake: IV 100 / 100 Maxipime Inj 2,000 MG In NS Inj 100 / 100 100 ML @ 200 mls/hr IV.SIG Q12H [facility] Rx#:[id number] Oral 560 / 560 2160 / 2160 Output: Urine 1600 / 1600 2350 / 2350 Other: Date of Last Bowel Movement 08/04/18 08/04/18 # Bowel Movements 1 2 Narrative: GENERAL: Alert, oriented. CARDIOVASCULAR: Regular rate and rhythm without murmurs, gallops, or rubs. RESPIRATORY: Breath sounds equal bilaterally. No accessory muscle use. GASTROINTESTINAL: Abdomen soft, non-tender, nondistended. Scars noted from previous surgeries MUSCULOSKELETAL: No cyanosis, or edema. BACK: No CVA tenderness. <Bárbara Florence - Last Filed: 08/05/18 10:35> Vital signs: Intake & Output 08/05/18 08/06/18 08/06/18 18:59 06:59 18:59 Intake Total 360 / 360 Balance 360 / 360 Intake: Oral 360 / 360 Other: # Voids 2 <Robert Patton - Last Filed: 08/06/18 14:56> Assessment and Plan - Assessment (1) Sepsis Code(s): A41.9 - Sepsis, unspecified organism Status: Acute Plan: UTI with sepsis. Patient has E.coli sepsis. Cefepime stopped yesterday. Keflex started today. (2) Acute pyelonephritis Code(s): N10 - Acute pyelonephritis Status: Acute Plan: Renal transplant US unremarkable. Continue antibiotic. (3) Renal transplant recipient Code(s): Z94.0 - Kidney transplant status Status: Acute Plan: Continue immunosuppressives as ordered. Tacrolimus level WNL. Continue Tacrolimus. (4) Type 2 diabetes mellitus Code(s): E11.9 - Type 2 diabetes mellitus without complications Status: Acute Plan: Patient was on Tradjenta at home. Insulin coverage to maintain blood glucose 140 of 180. <Bárbara Florence - Last Filed: 08/05/18 10:35> - Assessment (1) Sepsis Code(s): A41.9 - Sepsis, unspecified organism Status: Acute (2) Acute pyelonephritis Code(s): N10 - Acute pyelonephritis Status: Acute (3) Renal transplant recipient Code(s): Z94.0 - Kidney transplant status Status: Acute (4) Type 2 diabetes mellitus Code(s): E11.9 - Type 2 diabetes mellitus without complications Status: Acute - Attending Attestation patient was seen and examined. Agree with above assessment and plan. <Robert Patton - Last Filed: 08/06/18 14:56>
--- NOTE | 2018-08-05 12:10 | P.DS ---
Date of admission: 08/01/18 14:35 Primary care physician: Oscar Luis MD Brief History from admission: Ms Aleksander Reeves is a 68yof presenting with urinary frequency and incontinence, starting yesterday. Denies any hematuria, dysuria. 102 fever this morning. No history of any urinary tract infections. Nausea and vomiting today. Lightheadedness this morning. Cough but believes that this was more like gagging with her vomiting. Denies any flank pain. patient was on amoxicillin 2 months ago for a dental treatment. PMH: S/p renal transplant, followed by Dr. Mary nephrology Meds: Prednisone Tacrolimus Procrit Tradgenta Ranitidine Fosomax Aspirin 81mg Vitamin D Clobetasol Carisprodol Promethazine Xanax 0.25mg Sx: renal transplant 2 years ago at [facility] Cardiac stent 2001 Cholecystectomy R ovary removed Hand sx Social EtOH- socially Tobacco- never smoker Recreational Drugs- none DS: Diagnosis - Discharge Diagnosis (1) Sepsis Status: Acute (2) Acute pyelonephritis Status: Acute (3) Renal transplant recipient Status: Acute (4) Anxiety Status: Acute (5) GERD (gastroesophageal reflux disease) Status: Acute DS: Summary Hospital Course: Ms Farley was admitted on 08/01 for pyelonephritis resulting in sepsis. She was placed on IVF and cefepime. Nephrology followed while inpatient. Blood and urine cultures positive for E coli sensitive to cephalosporins. She continued to improve clinically. Remained afebrile and WBC stabilized. Repeat blood cultures showed no growthx 2 days. She was d/c home in stable condition on 08/05 with po Keflex. - Time Spent with Patient Total time spent providing and/or coordinating discharge services: Less than 30 minutes - Quality: VTE Deep Vein Thrombosis/Pulmonary Embolism Present on Admission: No Exam Vital signs: Vital Signs 08/04/18 16:00 08/04/18 20:00 08/05/18 00:00 Temperature 97.9 F 97.7 F 97.1 F L Pulse Rate 77 77 72 Respiratory Rate 16 18 17 Blood Pressure 121/60 135/64 140/69 Pulse Oximetry 98 97 97 08/05/18 04:00 08/05/18 08:00 Temperature 97.4 F L 97.7 F Pulse Rate 72 70 Respiratory Rate 17 18 Blood Pressure 146/69 H 149/66 H Pulse Oximetry 94 L 95 Intake & Output 08/04/18 08/05/18 08/05/18 18:59 06:59 18:59 Intake Total 660 / 660 2160 / 2160 Output Total 1600 / 1600 2350 / 2350 Balance -940 / -940 -190 / -190 Weight 60.4 kg Intake: IV 100 / 100 Maxipime Inj 2,000 MG In NS Inj 100 / 100 100 ML @ 200 mls/hr IV.SIG Q12H FANNY Rx#:[id number] Oral 560 / 560 2160 / 2160 Output: Urine 1600 / 1600 2350 / 2350 Other: Date of Last Bowel Movement 08/04/18 08/04/18 # Bowel Movements 1 2 Results Procedures completed during hospitalization: None Labs on day of discharge: Labs from last 24 hours 08/05/18 08/05/18 08/05/18 11:46 07:42 07:31 WBC RBC Hgb Hct MCV MCH MCHC RDW Plt Count MPV Sodium 142 Potassium 3.4 L Chloride 110 H Carbon Dioxide 24.0 Anion Gap 8 BUN 12 Creatinine 0.65 Estimated GFR Greater than 89 POC Glucose 151 H 118 H Random Glucose 119 H Calcium 9.4 Tacrolimus 08/05/18 08/04/18 08/04/18 07:31 20:34 16:57 WBC 5.7 RBC 4.21 Hgb 12.0 Hct 36.3 MCV 86.3 MCH 28.4 MCHC 32.9 RDW 13.5 Plt Count 190 MPV 9.7 Sodium Potassium Chloride Carbon Dioxide Anion Gap BUN Creatinine Estimated GFR POC Glucose 178 H 188 H Random Glucose Calcium Tacrolimus 08/04/18 08/04/18 12:12 07:07 WBC RBC Hgb Hct MCV MCH MCHC RDW Plt Count MPV Sodium Potassium Chloride Carbon Dioxide Anion Gap BUN Creatinine Estimated GFR POC Glucose 139 H Random Glucose Calcium Tacrolimus 10.3 Preliminary micro results at discharge 08/03/18 12:44 Aerobic Blood Culture - Preliminary Blood - Peripheral No growth in 2 days Anaerobic Blood Culture - Preliminary No growth in 2 days 08/03/18 12:37 Aerobic Blood Culture - Preliminary Blood - Peripheral No growth in 2 days Anaerobic Blood Culture - Preliminary No growth in 2 days 08/01/18 13:15 Aerobic Blood Culture - Preliminary Blood - Peripheral No growth in 4 days - Impressions ITS Impressions Chest X-Ray 08/01/18 13:19 CONCLUSION: No acute cardiopulmonary disease. Renal Ultrasound 08/01/18 14:42 CONCLUSION: Renal transplant ultrasound within normal limits. Discharge Plan - Discharge Disposition Patient Disposition: 01 Discharge Home - Discharge Condition Condition: Stable - Discharge Order Discharge Orders: Discharge Order (Routine); Ordered 08/05/18 Ordered By: Miracle Le R1 - Physicians Team Primary Care Provider: Oscar Luis Attending Provider: Polo Crespo Other Providers: Robert Patton MD
== END 2018-08-05 13:02 | disposition home or self-care (01) | DRG 872 ==
LOC: NEPC 12:46 → NEDA 14:35 → N04 17:50
PROVIDERS: ADMIT Family Medicine; ATTEND Family Medicine
CPT/HCPCS: 71010; 71045; 76776; 76778; 80048; 80053; 80197; 81001; 82948; 82962; 83605; 85025; 85027; 87040; 87077; 87086; 87149; 87186; 87205; 90765; 90775; 93005; 96365; 96375; 99285; J0692; J1650; J1815; J2405; J7030; J7506; J7507; J7512; J7517